=== PATIENT | male | born 1940 | race Caucasian/White ===

== ENCOUNTER → 2016-09-20 | Outpatient (CLI) | payer MEDICARE, BC ==
[~2016-09-20] MED LIST: AMLOPIDINE; ATIVAN0.5 MG; ATIVAN0.5 MG PO; CELEBREX200 MG; CELEBREX50 MG PO; CHILDREN'S ASPI81 M1 PO; LEVSIN-SL0.125 MG SL; LISINOPRIL2.5 MG PO; LOMOTIL 0.025 M1 TAB PO; LOPERAMIDE2 M2 PO; MEDI-FIRST NON325 MG PO; METOPROLOL SUCC25 M1 PO; NORCO 325 MG-51 TA1 PO; NORCO 325 MG-51 TAB; NORVASC 5MG5 MG/TAB PO; THERALITH PO
== END ==
LOC: LAB 08:23
DX: Z85.038 Personal history of other malignant neoplasm of large intestine (principal)
CPT/HCPCS: Q9967

== ENCOUNTER 2016-10-23 13:00 | Emergency (ER) | payer MEDICARE, BC | END 2016-10-23 15:43 | disposition home or self-care (01) | LOC: ED 13:00 | DX: R07.9 Chest pain, unspecified (principal); K22.4 Dyskinesia of esophagus; I10 Essential (primary) hypertension; F41.9 Anxiety disorder, unspecified ==

== ENCOUNTER → 2017-01-02 | Day surgery (SDC) | payer MEDICARE, BC ==
[2016-10-23 16:48] VITALS: BP 196/99
== END ==
LOC: MSO 08:28 → LAB 15:23 → MSO 15:24
DX: K22.2 Esophageal obstruction (principal); K21.0 Gastro-esophageal reflux disease with esophagitis
CPT/HCPCS: 00740; A4649; J3010; J7120

== ENCOUNTER → 2017-01-02 | Outpatient (CLI) | payer MEDICARE, BC ==
[2016-10-23 16:48] VITALS: BP 196/99
== END ==
LOC: RAD 16:47
DX: M54.12 Radiculopathy, cervical region (principal); M48.02 Spinal stenosis, cervical region

== ENCOUNTER → 2017-01-05 | Outpatient (CLI) | payer MEDICARE, BC ==
[2016-10-23 16:48] VITALS: BP 196/99
== END ==
LOC: RAD 08:47
DX: M54.12 Radiculopathy, cervical region (principal); M50.322 Other cervical disc degeneration at C5-C6 level; M50.323 Other cervical disc degeneration at C6-C7 level

== ENCOUNTER → 2017-03-13 | Outpatient (CLI) | payer MEDICARE, BC ==
[2016-10-23 16:48] VITALS: BP 196/99
[~2017-03-13] MED LIST changes: +CELEBREX 200MG200 MG PO; -CELEBREX50 MG PO; +CYANOCOBAL1000 MCG/1 IM; +LISINOPRIL5 MG PO; +PRILOSEC 20MG20 MG PO; -THERALITH PO; +TRAMADOL 50 MG TAB PO; +VITAMIN B COMPL1 TA1 PO
== END ==
LOC: LAB 09:39
DX: R53.83 Other fatigue (principal); W57.XXXA Bitten or stung by nonvenomous insect and other nonvenomous arthropods, initial encounter

== ENCOUNTER → 2017-04-04 | Outpatient (CLI) | payer MEDICARE, BC ==
[2016-10-23 16:48] VITALS: BP 196/99
== END ==
LOC: LAB 12:16
DX: K90.89 Other intestinal malabsorption (principal); I10 Essential (primary) hypertension; E53.8 Deficiency of other specified B group vitamins; G62.89 Other specified polyneuropathies; I73.9 Peripheral vascular disease, unspecified; N52.9 Male erectile dysfunction, unspecified

== ENCOUNTER → 2017-04-28 | Outpatient (CLI) | payer MEDICARE, BC ==
[2016-10-23 16:48] VITALS: BP 196/99
== END ==
LOC: LAB 13:21
DX: E61.1 Iron deficiency (principal)

== ENCOUNTER → 2017-05-24 | Outpatient (CLI) | payer MEDICARE, BC ==
[2016-10-23 16:48] VITALS: BP 196/99
== END ==
LOC: RAD 09:46
DX: M25.562 Pain in left knee (principal); M25.561 Pain in right knee; Z96.652 Presence of left artificial knee joint

== ENCOUNTER 2017-05-29 07:29 | Emergency (ER) | payer MEDICARE, BC ==
[~2017-05-29 07:29] MED LIST changes: -LISINOPRIL5 MG PO; -PRILOSEC 20MG20 MG PO; -TRAMADOL 50 MG TAB PO; -VITAMIN B COMPL1 TA1 PO
[2017-05-29] MEDS ORDERED: PRILOSEC 20MG20 MG PO (09:36)
[2017-05-29] MEDS ORDERED: TRAMADOL 50 MG TAB PO (09:37)
[2017-05-29] MEDS ORDERED: VITAMIN B COMPL1 TA1 PO (09:37)
[2017-05-29] MEDS ORDERED: LISINOPRIL5 MG PO (10:49)
[2017-05-29 11:20] VITALS: BP 154/95
== END 2017-05-29 11:32 | disposition home or self-care (01) ==
LOC: ED 07:29
DX: R42 Dizziness and giddiness (principal); R19.7 Diarrhea, unspecified; R53.1 Weakness; Z86.73 Personal history of transient ischemic attack (TIA), and cerebral infarction without residual deficits; Z85.09 Personal history of malignant neoplasm of other digestive organs
CPT/HCPCS: J7030

== ENCOUNTER → 2017-06-12 | Outpatient (CLI) | payer MEDICARE, BC ==
[2017-05-29 11:20] VITALS: BP 154/95
[~2017-06-12] MED LIST changes: +LISINOPRIL5 MG PO; +PRILOSEC 20MG20 MG PO; +TRAMADOL 50 MG TAB PO; +VITAMIN B COMPL1 TA1 PO
== END ==
LOC: RAD 14:21
DX: M54.5 Low back pain (principal); M51.26 Other intervertebral disc displacement, lumbar region; M46.87 Other specified inflammatory spondylopathies, lumbosacral region; M53.86 Other specified dorsopathies, lumbar region; M48.06 Spinal stenosis, lumbar region; M25.78 Osteophyte, vertebrae; Z98.890 Other specified postprocedural states
CPT/HCPCS: A9585

== ENCOUNTER → 2017-06-22 | Outpatient (CLI) | payer MEDICARE, BC ==
[2017-05-29 11:20] VITALS: BP 154/95
== END ==
LOC: LAB 14:15
DX: K90.89 Other intestinal malabsorption (principal); E53.8 Deficiency of other specified B group vitamins; G62.89 Other specified polyneuropathies; I73.9 Peripheral vascular disease, unspecified

== ENCOUNTER → 2017-08-23 | Outpatient (CLI) | payer MEDICARE, BC ==
[2017-07-09 11:27] VITALS: BP 150/104
[~2017-08-23] MED LIST changes: +ASPIR LOW81 MG PO; +FERROUS SULFAT325 M4 PO
== END ==
LOC: LAB 11:22
DX: Z01.818 Encounter for other preprocedural examination (principal); Z86.14 Personal history of Methicillin resistant Staphylococcus aureus infection

== ENCOUNTER 2017-08-31 10:07 | Outpatient (RCR) | payer MEDICARE, BC ==
[~2017-08-31] VITALS: Ht 188 cm; Wt 83.2 kg
[2017-08-31] MEDS ORDERED: LOMOTIL1 TAB PO (10:59)
[2017-08-31] MEDS ORDERED: FLOMAX0.4 MG PO (11:00)
[2017-08-31] MEDS ORDERED: FLONASE ALLERG9.9 ML NS (11:01)
[2017-08-31 11:05] VITALS: BP 142/79
[2017-09-01 09:26] VITALS: BP 135/89
[2017-09-02 09:35] VITALS: BP 137/91
[2017-09-03 09:27] VITALS: BP 126/79
[2017-09-04 09:27] VITALS: BP 136/91
[2017-09-05 09:33] VITALS: BP 118/57
[2017-09-06 09:28] VITALS: BP 126/85
== END 2017-09-06 10:00 | disposition home or self-care (01) ==
LOC: AMSURD 10:07 → EDSTATUS 10:09 → AMSURD 09-06 10:00
DX: J01.01 Acute recurrent maxillary sinusitis (principal)
CPT/HCPCS: J0696

== ENCOUNTER 2017-09-26 13:00 | Emergency (ER) | payer MEDICARE, BC ==
[~2017-09-26] VITALS: Ht 182.9 cm; Wt 85.9 kg
[~2017-09-26 13:00] MED LIST changes: +FLOMAX0.4 MG PO; +FLONASE ALLERG9.9 ML NS; +LOMOTIL1 TAB PO
[2017-09-26] MEDS ORDERED: FLOMAX0.4 MG PO (13:18)
[2017-09-26 14:29] LABS: HEMATOCRIT 43.8 % (42.0-52.0); MEAN CELL VOLUME 96 fl (78-100); MEAN CORPUSCULAR HEMOGLOBIN 33 pg (27-31); MEAN CORPUSCULAR HGB CONC 34 g/dL (33-37); MEAN PLATELET VOLUME 10.4 fl (7.4-10.4); PLATELET COUNT 299 K/mm3 (130-400); RED BLOOD COUNT 4.58 M/mm3 (4.20-5.60); RED CELL DISTRIBUTION WIDTH 14.1 % (11.5-14.5); WHITE BLOOD COUNT 8.2 K/mm3 (4.8-10.8)
[2017-09-26 14:34] LABS: ALBUMIN 4.3 g/dL (3.5-5.0); BUN/CREATININE RATIO 13.4 (6.0-26.0); CALCIUM 10.3 mg/dL (8.4-10.2); POTASSIUM 3.5 mmol/L (3.6-5.0); TOTAL BILIRUBIN 0.8 mg/dL (0.2-1.3); TOTAL PROTEIN 7.6 g/dL (6.3-8.2)
[2017-09-26 14:38] LABS: PARTIAL THROMBOPLASTIN TIME 24.5 SECONDS (21.0-32.0); PROTHROMBIN TIME 9.9 SECONDS (9.0-12.0)
[2017-09-26 14:48] LABS: NEUTROPHILS 66 % (42-75)
[2017-09-26 14:49] LABS: LYMPHOCYTE 23 % (20-51); MONOCYTE 11 % (3-10)
[2017-09-26 14:55] LABS: URINE APPEARANCE CLEAR; URINE BILIRUBIN NEGATIVE (NEGATIVE); URINE COLOR YELLOW; URINE GLUCOSE NEGATIVE (NEGATIVE); URINE KETONE NEGATIVE (NEGATIVE); URINE NITRATE NEGATIVE (NEGATIVE); URINE PROTEIN(semi-quant) TRACE mg/dL (NEGATIVE); URINE UROBILINOGEN NORMAL (NORMAL)
[2017-09-26 14:56] LABS: URINE BLOOD TRACE (NEGATIVE); URINE LEUKOCYTE ESTERASE NEGATIVE (NEGATIVE); URINE WBC 0-1 /hpf (0-3)
[2017-09-26 16:10] VITALS: BP 123/90
== END 2017-09-26 16:10 | disposition short-term general hospital (02) ==
LOC: ED 13:00
PROVIDERS: Physician Assistant
DX: I47.1 Supraventricular tachycardia (principal); I16.0 Hypertensive urgency; Z86.73 Personal history of transient ischemic attack (TIA), and cerebral infarction without residual deficits; E78.5 Hyperlipidemia, unspecified; R19.7 Diarrhea, unspecified; G62.9 Polyneuropathy, unspecified; Z79.82 Long term (current) use of aspirin
CPT/HCPCS: A4340; J3010; J3490

== ENCOUNTER → 2017-09-28 | Outpatient (CLI) | payer MEDICARE, BC ==
[~2017-09-28] VITALS: Ht 182.9 cm; Wt 83.2 kg
[~2017-09-28] MED LIST changes: +TERAZOSIN HCL2 M3; +TERAZOSIN HYDRO10 MG
[2017-09-28 10:21] LABS: ALBUMIN 4.1 g/dL (3.5-5.0); CALCIUM 10.3 mg/dL (8.4-10.2); POTASSIUM 3.8 mmol/L (3.6-5.0); TOTAL BILIRUBIN 0.8 mg/dL (0.2-1.3); TOTAL PROTEIN 7.4 g/dL (6.3-8.2)
[2017-09-28 10:24] LABS: PROTHROMBIN TIME 10.3 SECONDS (9.0-12.0)
[2017-09-28 10:33] VITALS: BP 135/86
[2017-09-28 12:19] LABS: URINE APPEARANCE CLEAR; URINE BILIRUBIN NEGATIVE (NEGATIVE); URINE BLOOD NEGATIVE (NEGATIVE); URINE COLOR YELLOW; URINE GLUCOSE NEGATIVE (NEGATIVE); URINE KETONE NEGATIVE (NEGATIVE); URINE LEUKOCYTE ESTERASE 1+ (NEGATIVE); URINE NITRATE NEGATIVE (NEGATIVE); URINE PROTEIN(semi-quant) 1+ mg/dL (NEGATIVE); URINE UROBILINOGEN NORMAL (NORMAL)
[2017-09-28 12:20] LABS: URINE MUCUS PRESENT (NOT PRESENT); URINE WBC 31-50 /hpf (0-3)
[2017-09-28 12:52] LABS: HEMATOCRIT 43.2 % (42.0-52.0); HEMOGLOBIN 14.1 g/dL (13.5-18.0); MEAN CELL VOLUME 99 fl (78-100); MEAN CORPUSCULAR HEMOGLOBIN 32 pg (27-31); MEAN CORPUSCULAR HGB CONC 33 g/dL (33-37); MEAN PLATELET VOLUME 10.5 fl (7.4-10.4); PLATELET COUNT 305 K/mm3 (130-400); RED BLOOD COUNT 4.36 M/mm3 (4.20-5.60); RED CELL DISTRIBUTION WIDTH 14.7 % (11.5-14.5); WHITE BLOOD COUNT 7.9 K/mm3 (4.8-10.8)
[2017-09-28 12:53] LABS: LYMPHOCYTE 24 % (20-51); MONOCYTE 7 % (3-10); NEUTROPHILS 69 % (42-75)
== END ==
LOC: AMSURD 09:47
PROVIDERS: Internal Medicine
DX: Z01.818 Encounter for other preprocedural examination (principal); M17.0 Bilateral primary osteoarthritis of knee; I10 Essential (primary) hypertension; N39.0 Urinary tract infection, site not specified

== ENCOUNTER 2017-09-29 08:43 | Outpatient (RCR) | payer MEDICARE, BC ==
[~2017-09-29] VITALS: Ht 182.9 cm; Wt 83.2 kg
[~2017-09-29 08:43] MED LIST changes: -TERAZOSIN HCL2 M3; -TERAZOSIN HYDRO10 MG
[2017-09-29] MEDS ORDERED: TERAZOSIN HCL2 M3 (08:59)
[2017-09-29 09:31] VITALS: BP 130/82
[2017-09-30 09:30] VITALS: BP 125/82
[2017-09-30] MEDS ORDERED: TERAZOSIN HYDRO10 MG (09:48)
[2017-09-30 09:50] VITALS: BP 136/86
[2017-10-01 09:05] VITALS: BP 132/85
[2017-10-01 09:23] VITALS: BP 126/89
[2017-10-02 09:46] VITALS: BP 148/78
[2017-10-03 09:20] VITALS: BP 136/79
[2017-10-04 09:30] VITALS: BP 137/83
[2017-10-04 09:31] VITALS: BP 137/83
[2017-10-05 09:15] VITALS: BP 132/84
== END 2017-10-05 10:00 | disposition home or self-care (01) ==
LOC: AMSURD 08:43
DX: N39.0 Urinary tract infection, site not specified (principal)
CPT/HCPCS: J0696

== ENCOUNTER → 2017-10-05 | Outpatient (CLI) | payer MEDICARE, BC ==
[~2017-10-05] MED LIST changes: +TERAZOSIN HCL2 M3; +TERAZOSIN HYDRO10 MG
[2017-10-05 09:15] VITALS: BP 132/84
[2017-10-05 17:59] LABS: URINE APPEARANCE CLEAR; URINE COLOR YELLOW
[2017-10-05 18:00] LABS: URINE BILIRUBIN NEGATIVE (NEGATIVE); URINE BLOOD 50 ery/uL (NEGATIVE); URINE GLUCOSE NEGATIVE (NEGATIVE); URINE KETONE NEGATIVE (NEGATIVE); URINE LEUKOCYTE ESTERASE NEGATIVE (NEGATIVE); URINE MUCUS PRESENT (NOT PRESENT); URINE NITRATE NEGATIVE (NEGATIVE); URINE PROTEIN(semi-quant) NEGATIVE (NEGATIVE); URINE UROBILINOGEN NORMAL (NORMAL)
== END ==
LOC: LAB 09:21
PROVIDERS: Internal Medicine
DX: N39.0 Urinary tract infection, site not specified (principal)

== ENCOUNTER → 2017-12-12 | Outpatient (CLI) | payer MEDICARE, BC ==
[2017-12-12 09:58] LABS: HEMATOCRIT 42.2 % (42.0-52.0); HEMOGLOBIN 14.2 g/dL (13.5-18.0); MEAN CELL VOLUME 96 fl (78-100); MEAN CORPUSCULAR HEMOGLOBIN 32 pg (27-31); MEAN CORPUSCULAR HGB CONC 34 g/dL (33-37); MEAN PLATELET VOLUME 9.3 fl (7.4-10.4); PLATELET COUNT 334 K/mm3 (130-400); RED BLOOD COUNT 4.41 M/mm3 (4.20-5.60); RED CELL DISTRIBUTION WIDTH 14.2 % (11.5-14.5); WHITE BLOOD COUNT 7.1 K/mm3 (4.8-10.8)
[2017-12-12 10:09] LABS: ALBUMIN 4.2 g/dL (3.5-5.0); BUN/CREATININE RATIO 13.4 (6.0-26.0); CALCIUM 10.1 mg/dL (8.4-10.2); POTASSIUM 3.9 mmol/L (3.6-5.0); TOTAL BILIRUBIN 0.6 mg/dL (0.2-1.3); TOTAL PROTEIN 7.8 g/dL (6.3-8.2)
[2017-12-12 10:18] LABS: NEUTROPHILS 59 % (42-75)
[2017-12-12 10:19] LABS: LYMPHOCYTE 22 % (20-51); MONOCYTE 16 % (3-10)
== END ==
LOC: LAB 09:42
PROVIDERS: Internal Medicine
DX: K90.89 Other intestinal malabsorption (principal); E61.1 Iron deficiency; M17.0 Bilateral primary osteoarthritis of knee; E53.8 Deficiency of other specified B group vitamins; G62.89 Other specified polyneuropathies; I73.9 Peripheral vascular disease, unspecified

== ENCOUNTER 2017-12-20 09:00 | Outpatient (RCR) | payer MEDICARE, BC | END 2018-01-11 | disposition home or self-care (01) | LOC: PT | DX: Z47.1 Aftercare following joint replacement surgery (principal); Z96.651 Presence of right artificial knee joint | CPT/HCPCS: G8978-GP; G8979-GP ==

== ENCOUNTER → 2018-01-08 | Day surgery (SDC) | payer MEDICARE, BC | LOC: MSO 08:15 | DX: R13.10 Dysphagia, unspecified (principal); K22.2 Esophageal obstruction; K44.9 Diaphragmatic hernia without obstruction or gangrene; K21.9 Gastro-esophageal reflux disease without esophagitis; I10 Essential (primary) hypertension; Z86.73 Personal history of transient ischemic attack (TIA), and cerebral infarction without residual deficits; G62.89 Other specified polyneuropathies | CPT/HCPCS: J2704; J7120 ==

== ENCOUNTER → 2018-02-21 | Outpatient (CLI) | payer MEDICARE, BC | LOC: RAD 08:03 | DX: R22.41 Localized swelling, mass and lump, right lower limb (principal); Z96.651 Presence of right artificial knee joint ==

== ENCOUNTER → 2018-03-30 | Outpatient (CLI) | payer MEDICARE, BC ==
[~2018-03-30] VITALS: Ht 182.9 cm; Wt 83.2 kg
[~2018-03-30] MED LIST changes: +MASON NATURAL1000 IU PO; +TIAZAC120 MG PO; +VITAMIN C500 M7 PO; +ZANTAC 7575 M1 PO
[2018-03-30 12:05] VITALS: BP 146/87
--- NOTE | 2018-03-30 13:27 | NUR ---
Pt up to bathroom x 2 while here - steady gait. Takes few bites of lunch and refuses rest.
[2018-03-30 14:15] VITALS: BP 135/78
--- NOTE | 2018-03-30 14:20 | NUR ---
Pt leaves hospital Ambulatory w/ steady gait. to transport pt home. Pt verbalizes he will be inside rest of day.
== END ==
LOC: ED 11:36 → EDSTATUS 11:42 → AMSURD 11:44
DX: E86.0 Dehydration (principal)
CPT/HCPCS: J7030

== ENCOUNTER 2018-04-27 08:23 | Emergency (ER) | payer MEDICARE, BC ==
[~2018-04-27] VITALS: Ht 190.5 cm; Wt 82.8 kg
[2018-04-27] MEDS ORDERED: DULOXETINE30 MG PO (08:32)
[2018-04-27 09:05] LABS: HEMATOCRIT 43.7 % (42.0-52.0); HEMOGLOBIN 14.9 g/dL (13.5-18.0); MEAN CELL VOLUME 97 fl (78-100); MEAN CORPUSCULAR HEMOGLOBIN 33 pg (27-31); MEAN CORPUSCULAR HGB CONC 34 g/dL (33-37); MEAN PLATELET VOLUME 9.3 fl (7.4-10.4); PLATELET COUNT 302 K/mm3 (130-400); RED BLOOD COUNT 4.52 M/mm3 (4.20-5.60); RED CELL DISTRIBUTION WIDTH 13.6 % (11.5-14.5); WHITE BLOOD COUNT 6.1 K/mm3 (4.8-10.8)
[2018-04-27 09:20] LABS: ALBUMIN 4.1 g/dL (3.5-5.0); BUN/CREATININE RATIO 16.9 (6.0-26.0); CALCIUM 9.7 mg/dL (8.4-10.2); POTASSIUM 4.2 mmol/L (3.6-5.0); TOTAL PROTEIN 7.2 g/dL (6.3-8.2)
[2018-04-27 09:21] LABS: LYMPHOCYTE 16 % (20-51); MONOCYTE 16 % (3-10); NEUTROPHILS 67 % (42-75)
[2018-04-27 10:39] LABS: URINE APPEARANCE CLEAR; URINE BILIRUBIN NEGATIVE (NEGATIVE); URINE BLOOD TRACE (NEGATIVE); URINE COLOR YELLOW; URINE GLUCOSE NEGATIVE (NEGATIVE); URINE KETONE NEGATIVE (NEGATIVE); URINE LEUKOCYTE ESTERASE NEGATIVE (NEGATIVE); URINE MUCUS PRESENT (NOT PRESENT); URINE NITRATE NEGATIVE (NEGATIVE); URINE PROTEIN(semi-quant) TRACE mg/dL (NEGATIVE); URINE UROBILINOGEN NORMAL (NORMAL)
[2018-04-27 12:25] VITALS: BP 127/73
== END 2018-04-27 12:06 | disposition home or self-care (01) ==
LOC: ED 08:23
PROVIDERS: Nurse Practitioner
DX: R19.7 Diarrhea, unspecified (principal); R10.84 Generalized abdominal pain; R11.0 Nausea; I95.1 Orthostatic hypotension; Z79.899 Other long term (current) drug therapy; Z79.82 Long term (current) use of aspirin
CPT/HCPCS: J2405; J3010; J7030

== ENCOUNTER → 2018-07-06 | Outpatient (CLI) | payer MEDICARE, BC ==
[~2018-07-06] MED LIST changes: +DULOXETINE30 MG PO
[2018-07-06 11:33] LABS: BASO # 0.1 (0.02-0.10); EOS # 0.1 (0.04-0.40); EOS % 1.6 % (0.0-4.0); HEMATOCRIT 42.9 % (42.0-52.0); HEMOGLOBIN 14.4 g/dL (13.5-18.0); LYMPH# 1.5 (1.50-4.00); MEAN CELL VOLUME 96 fl (78-100); MEAN CORPUSCULAR HEMOGLOBIN 32 pg (27-31); MEAN CORPUSCULAR HGB CONC 34 g/dL (33-37); MEAN PLATELET VOLUME 9.6 fl (7.4-10.4); MONO # 0.8 (0.20-0.80); PLATELET COUNT 293 K/mm3 (130-400); RED BLOOD COUNT 4.45 M/mm3 (4.20-5.60); RED CELL DISTRIBUTION WIDTH 13.6 % (11.5-14.5); WHITE BLOOD COUNT 7.5 K/mm3 (4.8-10.8)
[2018-07-06 12:20] LABS: ALBUMIN 4.2 g/dL (3.5-5.0); CALCIUM 10.5 mg/dL (8.4-10.2); POTASSIUM 4.3 mmol/L (3.6-5.0); TOTAL BILIRUBIN 0.8 mg/dL (0.2-1.3)
== END ==
LOC: LAB 10:54
PROVIDERS: Internal Medicine
DX: K90.9 Intestinal malabsorption, unspecified (principal); E61.1 Iron deficiency; E55.9 Vitamin D deficiency, unspecified; G62.9 Polyneuropathy, unspecified; I73.9 Peripheral vascular disease, unspecified; I10 Essential (primary) hypertension; M19.90 Unspecified osteoarthritis, unspecified site

== ENCOUNTER → 2018-08-23 | Outpatient (CLI) | payer MEDICARE, BC | LOC: RAD 13:29 | DX: M25.511 Pain in right shoulder (principal) ==

== ENCOUNTER → 2018-09-03 | Outpatient (CLI) | payer MEDICARE, BC | LOC: RAD 12:45 | DX: M19.011 Primary osteoarthritis, right shoulder (principal); M75.91 Shoulder lesion, unspecified, right shoulder; M25.411 Effusion, right shoulder ==

== ENCOUNTER → 2018-12-14 | Outpatient (CLI) | payer MEDICARE, BC | LOC: RAD 09:50 | DX: C78.6 Secondary malignant neoplasm of retroperitoneum and peritoneum (principal); Z90.49 Acquired absence of other specified parts of digestive tract; Z90.81 Acquired absence of spleen | CPT/HCPCS: Q9967 ==

== ENCOUNTER → 2018-12-24 | Outpatient (CLI) | payer OTHER ==
[2018-12-25 16:53] LABS: HEPATITIS B SURFACE ANTIGEN Negative (Negative)
[2018-12-25 19:50] LABS: HEPATITIS C VIRUS ANTIBODY Negative (Negative)
== END ==
LOC: LAB 13:39
PROVIDERS: Internal Medicine
DX: Z02.83 Encounter for blood-alcohol and blood-drug test (principal)

== ENCOUNTER → 2018-12-24 | Day surgery (SDC) | payer MEDICARE, BC | LOC: MSO 08:07 | DX: K22.2 Esophageal obstruction (principal); K44.9 Diaphragmatic hernia without obstruction or gangrene; K21.0 Gastro-esophageal reflux disease with esophagitis; I10 Essential (primary) hypertension; M19.90 Unspecified osteoarthritis, unspecified site; K52.9 Noninfective gastroenteritis and colitis, unspecified; Z90.49 Acquired absence of other specified parts of digestive tract; Z79.82 Long term (current) use of aspirin; Z96.653 Presence of artificial knee joint, bilateral; Z88.8 Allergy status to other drugs, medicaments and biological substances; Z86.73 Personal history of transient ischemic attack (TIA), and cerebral infarction without residual deficits; Z85.9 Personal history of malignant neoplasm, unspecified | CPT/HCPCS: 00731; C1769; J2704; J7120 ==

== ENCOUNTER → 2018-12-25 | Outpatient (CLI) | payer MEDICARE, BC ==
[2018-12-25 10:53] LABS: EOS # 0.1 (0.04-0.40); EOS % 0.4 % (0.0-4.0); HEMATOCRIT 45.9 % (42.0-52.0); HEMOGLOBIN 15.4 g/dL (13.5-18.0); LYMPH# 1.8 (1.50-4.00); MEAN CELL VOLUME 96 fl (78-100); MEAN CORPUSCULAR HEMOGLOBIN 32 pg (27-31); MEAN CORPUSCULAR HGB CONC 34 g/dL (33-37); MEAN PLATELET VOLUME 9.1 fl (7.4-10.4); MONO # 1.4 (0.20-0.80); NEU # 8.6 (1.40-6.50); PLATELET COUNT 337 K/mm3 (130-400); RED BLOOD COUNT 4.76 M/mm3 (4.20-5.60); RED CELL DISTRIBUTION WIDTH 13.5 % (11.5-14.5); WHITE BLOOD COUNT 11.9 K/mm3 (4.8-10.8)
[2018-12-25 11:19] LABS: ALBUMIN 4.3 g/dL (3.5-5.0); CALCIUM 10.5 mg/dL (8.4-10.2); POTASSIUM 3.9 mmol/L (3.6-5.0); TOTAL BILIRUBIN 0.7 mg/dL (0.2-1.3); TOTAL PROTEIN 7.6 g/dL (6.3-8.2)
== END ==
LOC: LAB 10:24
PROVIDERS: Internal Medicine
DX: K90.9 Intestinal malabsorption, unspecified (principal); E61.1 Iron deficiency; E53.8 Deficiency of other specified B group vitamins; M19.90 Unspecified osteoarthritis, unspecified site; I10 Essential (primary) hypertension; G62.9 Polyneuropathy, unspecified; I73.9 Peripheral vascular disease, unspecified

== ENCOUNTER → 2019-03-20 | Outpatient (CLI) | payer MEDICARE, BC ==
[~2019-03-20] VITALS: Ht 190.5 cm; Wt 81.8 kg
[2019-03-20 14:31] VITALS: BP 105/61
[2019-03-20 14:45] VITALS: BP 105/64
[2019-03-20 16:43] VITALS: BP 126/70
== END ==
LOC: AMSURD 14:04
DX: C80.1 Malignant (primary) neoplasm, unspecified (principal); K52.9 Noninfective gastroenteritis and colitis, unspecified; E86.0 Dehydration
CPT/HCPCS: J7030

== ENCOUNTER → 2019-04-03 | Outpatient (CLI) | payer MEDICARE, BC ==
[2019-03-20 16:43] VITALS: BP 126/70
== END ==
LOC: RAD 08:07
DX: M25.561 Pain in right knee (principal); M25.562 Pain in left knee; Z96.653 Presence of artificial knee joint, bilateral

== ENCOUNTER → 2019-10-07 | Outpatient (CLI) | payer MEDICARE, BC ==
[2019-03-20 16:43] VITALS: BP 126/70
[2019-10-07 14:18] LABS: HEMATOCRIT 40.9 % (42.0-52.0); HEMOGLOBIN 13.7 g/dL (13.5-18.0); MEAN CELL VOLUME 97 fl (78-100); MEAN CORPUSCULAR HEMOGLOBIN 33 pg (27-31); MEAN CORPUSCULAR HGB CONC 34 g/dL (33-37); MEAN PLATELET VOLUME 9.1 fl (7.4-10.4); PLATELET COUNT 322 K/mm3 (130-400); RED BLOOD COUNT 4.21 M/mm3 (4.20-5.60); RED CELL DISTRIBUTION WIDTH 13.1 % (11.5-14.5); WHITE BLOOD COUNT 6.7 K/mm3 (4.8-10.8)
[2019-10-07 14:52] LABS: LYMPHOCYTE 25 % (20-51); MONOCYTE 14 % (3-10); NEUTROPHILS 59 % (42-75)
[2019-10-07 14:53] LABS: ALBUMIN 4.2 g/dL (3.4-4.8)
[2019-10-07 14:55] LABS: TOTAL PROTEIN 7.3 g/dL (6.2-8.1)
[2019-10-07 14:57] LABS: TOTAL BILIRUBIN 0.4 mg/dL (0.2-1.2)
[2019-10-07 15:02] LABS: MAGNESIUM 1.97 mg/dL (1.60-2.60)
== END ==
LOC: LAB 14:02
PROVIDERS: Internal Medicine
DX: Z12.5 Encounter for screening for malignant neoplasm of prostate (principal); K90.9 Intestinal malabsorption, unspecified; I10 Essential (primary) hypertension; E61.1 Iron deficiency; I73.9 Peripheral vascular disease, unspecified; G62.89 Other specified polyneuropathies; E53.8 Deficiency of other specified B group vitamins; M17.0 Bilateral primary osteoarthritis of knee

== ENCOUNTER 2019-11-16 08:49 | Emergency (ER) | payer MEDICARE, BC ==
[~2019-11-16] VITALS: Ht 188 cm; Wt 81.8 kg
[2019-11-16 09:31] LABS: BASO # 0.1 (0.02-0.10); EOS # 0.1 (0.04-0.40); EOS % 1.8 % (0.0-4.0); HEMATOCRIT 43.5 % (42.0-52.0); HEMOGLOBIN 14.7 g/dL (13.5-18.0); LYMPH# 1.7 (1.50-4.00); MEAN CELL VOLUME 97 fl (78-100); MEAN CORPUSCULAR HEMOGLOBIN 33 pg (27-31); MEAN CORPUSCULAR HGB CONC 34 g/dL (33-37); MEAN PLATELET VOLUME 9.1 fl (7.4-10.4); MONO # 0.8 (0.20-0.80); PLATELET COUNT 312 K/mm3 (130-400); RED BLOOD COUNT 4.49 M/mm3 (4.20-5.60); RED CELL DISTRIBUTION WIDTH 13.1 % (11.5-14.5); WHITE BLOOD COUNT 6.7 K/mm3 (4.8-10.8)
[2019-11-16] MEDS ORDERED: ACETAMINOPHEN-H1 TA2 PO (09:33)
[2019-11-16 09:50] LABS: ALBUMIN 4.1 g/dL (3.4-4.8)
[2019-11-16 09:51] LABS: POTASSIUM 3.6 mmol/L (3.5-5.1); SODIUM 140 mmol/L (136-145)
[2019-11-16 09:52] LABS: CALCIUM 10.3 mg/dL (8.3-10.5)
[2019-11-16 09:53] LABS: GLUCOSE 114 mg/dL (75-110)
[2019-11-16 09:54] LABS: CARBON DIOXIDE 24 mmol/L (23-31); TOTAL PROTEIN 7.1 g/dL (6.2-8.1)
[2019-11-16 09:55] LABS: TOTAL BILIRUBIN 0.6 mg/dL (0.2-1.2)
[2019-11-16 09:58] LABS: AST-SGOT 24 U/L (5-34)
[2019-11-16 10:00] LABS: ALT/SGPT 21 U/L (0-55)
[2019-11-16 10:07] LABS: TROPONIN-I < 0.03 ng/mL (<0.030)
[2019-11-16 13:55] VITALS: BP 123/60
== END 2019-11-16 13:55 | disposition home or self-care (01) ==
LOC: ED 08:49
PROVIDERS: Family Medicine
DX: R00.2 Palpitations (principal); I48.91 Unspecified atrial fibrillation; E86.9 Volume depletion, unspecified; G62.9 Polyneuropathy, unspecified; K52.9 Noninfective gastroenteritis and colitis, unspecified; Z79.82 Long term (current) use of aspirin; Z85.038 Personal history of other malignant neoplasm of large intestine
CPT/HCPCS: J7030

== ENCOUNTER → 2020-02-17 | Outpatient (CLI) | payer MEDICARE, BC ==
[~2020-02-17] MED LIST changes: +ACETAMINOPHEN-H1 TA2 PO
[2020-02-17 17:23] LABS: ALBUMIN 4.2 g/dL (3.4-4.8); POTASSIUM 3.9 mmol/L (3.5-5.1)
[2020-02-17 17:25] LABS: CALCIUM 9.8 mg/dL (8.3-10.5)
[2020-02-17 17:26] LABS: TOTAL PROTEIN 7.4 g/dL (6.2-8.1)
[2020-02-17 17:28] LABS: BASO # 0.1 (0.02-0.10); EOS # 0.1 (0.04-0.40); EOS % 1.5 % (0.0-4.0); HEMATOCRIT 40.8 % (42.0-52.0); HEMOGLOBIN 13.5 g/dL (13.5-18.0); MEAN CELL VOLUME 97 fl (78-100); MEAN CORPUSCULAR HEMOGLOBIN 32 pg (27-31); MEAN CORPUSCULAR HGB CONC 33 g/dL (33-37); MEAN PLATELET VOLUME 9.4 fl (7.4-10.4); MONO # 0.9 (0.20-0.80); NEU # 4.3 (1.40-6.50); PLATELET COUNT 303 K/mm3 (130-400); RED BLOOD COUNT 4.23 M/mm3 (4.20-5.60); RED CELL DISTRIBUTION WIDTH 13.7 % (11.5-14.5); TOTAL BILIRUBIN 0.4 mg/dL (0.2-1.2); WHITE BLOOD COUNT 7.4 K/mm3 (4.8-10.8)
[2020-02-17 17:32] LABS: MAGNESIUM 2.15 mg/dL (1.60-2.60)
[2020-02-17 18:26] LABS: PH-URINE 5.5 (5.0 - 8.0); URINE APPEARANCE CLEAR; URINE BILIRUBIN NEGATIVE (NEGATIVE); URINE BLOOD TRACE (NEGATIVE); URINE COLOR YELLOW; URINE GLUCOSE NEGATIVE (NEGATIVE); URINE KETONE NEGATIVE (NEGATIVE); URINE LEUKOCYTE ESTERASE TRACE (NEGATIVE); URINE NITRATE NEGATIVE (NEGATIVE); URINE PROTEIN(semi-quant) TRACE mg/dL (NEGATIVE); URINE UROBILINOGEN NORMAL (NORMAL); URINE WBC 0-1 /hpf (0-3)
== END ==
LOC: AMSURD 16:15
PROVIDERS: Internal Medicine
DX: Z01.818 Encounter for other preprocedural examination (principal); M19.90 Unspecified osteoarthritis, unspecified site; H26.9 Unspecified cataract; J98.4 Other disorders of lung; J94.8 Other specified pleural conditions

== ENCOUNTER → 2020-02-24 | Outpatient (CLI) | payer MEDICARE, BC ==
[2020-02-24 13:43] LABS: URINE APPEARANCE CLEAR; URINE BILIRUBIN NEGATIVE (NEGATIVE); URINE BLOOD 50 ery/uL (NEGATIVE); URINE COLOR YELLOW; URINE GLUCOSE NEGATIVE (NEGATIVE); URINE KETONE NEGATIVE (NEGATIVE); URINE LEUKOCYTE ESTERASE NEGATIVE (NEGATIVE); URINE MUCUS PRESENT (NOT PRESENT); URINE NITRATE NEGATIVE (NEGATIVE); URINE PROTEIN(semi-quant) 1+ mg/dL (NEGATIVE); URINE UROBILINOGEN NORMAL (NORMAL)
== END ==
LOC: LAB 13:03
PROVIDERS: Internal Medicine
DX: Z01.818 Encounter for other preprocedural examination (principal); H26.9 Unspecified cataract

== ENCOUNTER → 2020-03-31 | Outpatient (CLI) | payer MEDICARE, BC ==
[~2020-03-31] VITALS: Ht 188 cm; Wt 79.5 kg
[~2020-03-31] MED LIST changes: -ASPIR LOW81 MG PO; +ASPIRIN E.C. 8181 MG PO; -MASON NATURAL1000 IU PO; +VITAMIN B-650 M3 PO; +VITAMIN D3100 MCG PO
[2020-03-31 09:58] VITALS: BP 139/85
[2020-03-31 10:25] VITALS: BP 139/85
[2020-03-31 11:31] VITALS: BP 123/69
--- NOTE | 2020-03-31 11:31 | NUR ---
2ND LITER STARTED. bp 123/69, HR 61, RR 16 - BREATH SOUNDS CLEAR, O2 SAT 95%. PT REPORTS FEELING "BETTER".
[2020-03-31 12:51] VITALS: BP 147/77
== END ==
LOC: AMSURD 09:18
DX: I95.1 Orthostatic hypotension (principal)
CPT/HCPCS: J7030

== ENCOUNTER 2020-06-19 01:36 | Emergency (ER) | payer MEDICARE, BC ==
[2020-06-19] MEDS ORDERED: FLOMAX0.4 MG PO (01:53)
[2020-06-19 02:23] LABS: HEMATOCRIT 41.2 % (42.0-52.0); HEMOGLOBIN 13.6 g/dL (13.5-18.0); MEAN CELL VOLUME 95 fl (78-100); MEAN CORPUSCULAR HEMOGLOBIN 31 pg (27-31); MEAN CORPUSCULAR HGB CONC 33 g/dL (33-37); MEAN PLATELET VOLUME 9.5 fl (7.4-10.4); PLATELET COUNT 325 K/mm3 (130-400); RED BLOOD COUNT 4.36 M/mm3 (4.20-5.60); RED CELL DISTRIBUTION WIDTH 13.9 % (11.5-14.5); WHITE BLOOD COUNT 12.2 K/mm3 (4.8-10.8)
[2020-06-19 02:30] LABS: URINE APPEARANCE CLEAR; URINE BILIRUBIN NEGATIVE (NEGATIVE); URINE COLOR YELLOW; URINE GLUCOSE NEGATIVE (NEGATIVE); URINE KETONE NEGATIVE (NEGATIVE); URINE PROTEIN(semi-quant) 1+ mg/dL (NEGATIVE)
[2020-06-19 02:31] LABS: URINE BLOOD TRACE (NEGATIVE); URINE LEUKOCYTE ESTERASE TRACE (NEGATIVE); URINE MUCUS PRESENT (NOT PRESENT); URINE NITRATE NEGATIVE (NEGATIVE); URINE UROBILINOGEN NORMAL (NORMAL)
[2020-06-19 02:33] LABS: ALBUMIN 4.2 g/dL (3.4-4.8)
[2020-06-19 02:34] LABS: POTASSIUM 3.7 mmol/L (3.5-5.1)
[2020-06-19 02:35] LABS: CALCIUM 10.1 mg/dL (8.3-10.5); LYMPHOCYTE 7 % (20-51); MONOCYTE 9 % (3-10); NEUTROPHILS 83 % (42-75)
[2020-06-19 02:38] LABS: TOTAL BILIRUBIN 0.7 mg/dL (0.2-1.2)
[2020-06-19 06:07] VITALS: BP 158/93
== END 2020-06-19 06:43 | disposition short-term general hospital (02) ==
LOC: ED 01:36
PROVIDERS: Nurse Practitioner Family
DX: K56.609 Unspecified intestinal obstruction, unspecified as to partial versus complete obstruction (principal); I10 Essential (primary) hypertension; Z90.49 Acquired absence of other specified parts of digestive tract; Z96.651 Presence of right artificial knee joint; Z98.890 Other specified postprocedural states; Z79.82 Long term (current) use of aspirin
CPT/HCPCS: B4082; J1885; J2270; J2405; J7030; Q9967

== ENCOUNTER → 2020-07-06 | Day surgery (SDC) | payer MEDICARE, BC ==
[2020-06-19 06:07] VITALS: BP 158/93
== END ==
LOC: MSO 07:52
DX: K22.2 Esophageal obstruction (principal); K44.9 Diaphragmatic hernia without obstruction or gangrene; K31.89 Other diseases of stomach and duodenum; I10 Essential (primary) hypertension; E53.8 Deficiency of other specified B group vitamins; G89.29 Other chronic pain; K52.9 Noninfective gastroenteritis and colitis, unspecified; Z85.09 Personal history of malignant neoplasm of other digestive organs; Z79.899 Other long term (current) drug therapy; Z92.21 Personal history of antineoplastic chemotherapy; Z86.73 Personal history of transient ischemic attack (TIA), and cerebral infarction without residual deficits; Z96.652 Presence of left artificial knee joint; Z88.8 Allergy status to other drugs, medicaments and biological substances
CPT/HCPCS: 00731; C1769; J2704; J7120

== ENCOUNTER → 2020-07-22 | Outpatient (CLI) | payer MEDICARE, BC | LOC: RAD 09:04 | DX: M24.832 Other specific joint derangements of left wrist, not elsewhere classified (principal) ==

== ENCOUNTER → 2020-10-12 | Outpatient (CLI) | payer MEDICARE, BC ==
[2020-10-12 11:38] LABS: HEMATOCRIT 37.1 % (42.0-52.0); HEMOGLOBIN 11.8 g/dL (13.5-18.0); MEAN CELL VOLUME 94 fl (78-100); MEAN CORPUSCULAR HEMOGLOBIN 30 pg (27-31); MEAN CORPUSCULAR HGB CONC 32 g/dL (33-37); MEAN PLATELET VOLUME 9.4 fl (7.4-10.4); PLATELET COUNT 374 K/mm3 (130-400); RED BLOOD COUNT 3.97 M/mm3 (4.20-5.60); RED CELL DISTRIBUTION WIDTH 13.9 % (11.5-14.5); WHITE BLOOD COUNT 6.7 K/mm3 (4.8-10.8)
[2020-10-12 11:43] LABS: ALBUMIN 4.1 g/dL (3.4-4.8); POTASSIUM 3.9 mmol/L (3.5-5.1)
[2020-10-12 11:44] LABS: CALCIUM 9.9 mg/dL (8.3-10.5)
[2020-10-12 11:46] LABS: TOTAL PROTEIN 7.7 g/dL (6.2-8.1)
[2020-10-12 11:47] LABS: TOTAL BILIRUBIN 0.4 mg/dL (0.2-1.2)
[2020-10-12 12:36] LABS: LYMPHOCYTE 21 % (20-51); MONOCYTE 11 % (3-10); NEUTROPHILS 67 % (42-75)
[2020-10-12 13:27] LABS: ERYTHROCYTE SEDIMENTATION RATE 12 mm/hr (0-20)
== END ==
LOC: LAB 11:09
PROVIDERS: Internal Medicine
DX: Z12.5 Encounter for screening for malignant neoplasm of prostate (principal); G62.9 Polyneuropathy, unspecified; K90.9 Intestinal malabsorption, unspecified; E78.2 Mixed hyperlipidemia

== ENCOUNTER → 2020-10-14 | Outpatient (CLI) | payer MEDICARE, BC | LOC: RAD 15:34 | DX: I08.1 Rheumatic disorders of both mitral and tricuspid valves (principal) ==

== ENCOUNTER → 2020-10-23 | Outpatient (CLI) | payer MEDICARE, BC | LOC: CARDREHAB 07:58 | DX: R06.00 Dyspnea, unspecified (principal) | CPT/HCPCS: A9500 ==

== ENCOUNTER 2020-11-06 09:55 | Emergency (ER) | payer MEDICARE, BC ==
[2020-11-06] MEDS ORDERED: PRILOSEC 20MG20 MG PO (10:08)
[2020-11-06 10:41] LABS: HEMATOCRIT 36.3 % (42.0-52.0); HEMOGLOBIN 11.7 g/dL (13.5-18.0); MEAN CELL VOLUME 89 fl (78-100); MEAN CORPUSCULAR HEMOGLOBIN 29 pg (27-31); MEAN CORPUSCULAR HGB CONC 32 g/dL (33-37); MEAN PLATELET VOLUME 9.6 fl (7.4-10.4); PLATELET COUNT 388 K/mm3 (130-400); RED BLOOD COUNT 4.07 M/mm3 (4.20-5.60); RED CELL DISTRIBUTION WIDTH 14.1 % (11.5-14.5); WHITE BLOOD COUNT 5.9 K/mm3 (4.8-10.8)
[2020-11-06 11:02] LABS: LYMPHOCYTE 24 % (20-51); MONOCYTE 14 % (3-10); NEUTROPHILS 60 % (42-75); TEAR DROP CELLS 1+
[2020-11-06 11:04] LABS: POTASSIUM 4.1 mmol/L (3.5-5.1)
[2020-11-06 11:05] LABS: CALCIUM 9.7 mg/dL (8.3-10.5)
[2020-11-06 11:06] LABS: TOTAL PROTEIN 7.5 g/dL (6.2-8.1)
[2020-11-06 11:08] LABS: TOTAL BILIRUBIN 0.5 mg/dL (0.2-1.2)
[2020-11-06 12:03] LABS: URINE APPEARANCE CLEAR; URINE BILIRUBIN NEGATIVE (NEGATIVE); URINE BLOOD 50 ery/uL (NEGATIVE); URINE COLOR YELLOW; URINE GLUCOSE NEGATIVE (NEGATIVE); URINE KETONE NEGATIVE (NEGATIVE); URINE LEUKOCYTE ESTERASE NEGATIVE (NEGATIVE); URINE NITRATE NEGATIVE (NEGATIVE); URINE PROTEIN(semi-quant) TRACE mg/dL (NEGATIVE); URINE UROBILINOGEN NORMAL (NORMAL); URINE WBC 0-1 /hpf (0-3)
[2020-11-06 13:27] VITALS: BP 135/88
[2021-07-31] MEDS ORDERED: NORTRIPTYLINE H10 M2 PO (08:46)
== END 2020-11-06 13:28 | disposition home or self-care (01) ==
LOC: ED 09:55
PROVIDERS: Nurse Practitioner Primary Care
DX: I95.1 Orthostatic hypotension (principal); E86.0 Dehydration; Z86.73 Personal history of transient ischemic attack (TIA), and cerebral infarction without residual deficits; Z85.89 Personal history of malignant neoplasm of other organs and systems; Z88.8 Allergy status to other drugs, medicaments and biological substances; Z79.82 Long term (current) use of aspirin
CPT/HCPCS: J7030

== ENCOUNTER → 2020-11-16 | Outpatient (CLI) | payer MEDICARE, BC ==
[2020-11-06 13:27] VITALS: BP 135/88
[~2020-11-16] MED LIST changes: +DILTIAZEM 24HR120 M2 PO; +LORAZEPAM0.5 M1 PO; +NORTRIPTYLINE H10 M2 PO
[2020-11-16 12:54] LABS: POTASSIUM 4.2 mmol/L (3.5-5.1)
[2020-11-16 12:55] LABS: CALCIUM 9.7 mg/dL (8.3-10.5)
[2020-11-16 13:08] LABS: EOS % 2.4 % (0.0-4.0); HEMATOCRIT 34.9 % (42.0-52.0); HEMOGLOBIN 11.2 g/dL (13.5-18.0); LYMPH# 1.6 (1.50-4.00); MEAN CELL VOLUME 91 fl (78-100); MEAN CORPUSCULAR HEMOGLOBIN 29 pg (27-31); MEAN CORPUSCULAR HGB CONC 32 g/dL (33-37); MEAN PLATELET VOLUME 8.8 fl (7.4-10.4); NEU # 3.6 (1.40-6.50); PLATELET COUNT 372 K/mm3 (130-400); RED BLOOD COUNT 3.85 M/mm3 (4.20-5.60); RED CELL DISTRIBUTION WIDTH 13.8 % (11.5-14.5); WHITE BLOOD COUNT 6.2 K/mm3 (4.8-10.8)
[2020-11-16 13:09] LABS: BASO # 0.1 (0.02-0.10); EOS # 0.2 (0.04-0.40); MONO # 0.7 (0.20-0.80)
== END ==
LOC: LAB 12:19
PROVIDERS: Internal Medicine
DX: E61.1 Iron deficiency (principal); G62.9 Polyneuropathy, unspecified

== ENCOUNTER 2020-11-17 09:12 | Emergency (ER) | payer MEDICARE, BC ==
[~2020-11-17 09:12] MED LIST changes: -DILTIAZEM 24HR120 M2 PO; -LORAZEPAM0.5 M1 PO; -NORTRIPTYLINE H10 M2 PO
[2020-11-17 10:02] LABS: ALBUMIN 3.9 g/dL (3.4-4.8)
[2020-11-17 10:03] LABS: POTASSIUM 3.8 mmol/L (3.5-5.1); SODIUM 139 mmol/L (136-145)
[2020-11-17 10:04] LABS: CALCIUM 9.7 mg/dL (8.3-10.5)
[2020-11-17 10:05] LABS: GLUCOSE 103 mg/dL (75-110); TOTAL PROTEIN 7.4 g/dL (6.2-8.1)
[2020-11-17 10:06] LABS: CARBON DIOXIDE 25 mmol/L (23-31)
[2020-11-17 10:07] LABS: TOTAL BILIRUBIN 0.4 mg/dL (0.2-1.2)
[2020-11-17 10:10] LABS: AST-SGOT 19 U/L (5-34)
[2020-11-17 10:11] LABS: ALT/SGPT 16 U/L (0-55)
[2020-11-17 10:18] LABS: TROPONIN-I < 0.03 ng/mL (<0.030)
[2020-11-17 10:37] LABS: D-DIMER 0.6 mg/L FEU (0.15-0.50)
[2020-11-17 11:07] LABS: URINE APPEARANCE CLEAR; URINE BILIRUBIN NEGATIVE (NEGATIVE); URINE BLOOD TRACE (NEGATIVE); URINE COLOR YELLOW; URINE GLUCOSE NEGATIVE (NEGATIVE); URINE KETONE NEGATIVE (NEGATIVE); URINE LEUKOCYTE ESTERASE NEGATIVE (NEGATIVE); URINE NITRATE NEGATIVE (NEGATIVE); URINE PROTEIN(semi-quant) TRACE mg/dL (NEGATIVE); URINE UROBILINOGEN NORMAL (NORMAL); URINE WBC 0-1 /hpf (0-3)
[2020-11-17 11:16] LABS: HEMOGLOBIN 11.3 g/dL (13.5-18.0); RED BLOOD COUNT 3.96 M/mm3 (4.20-5.60); WHITE BLOOD COUNT 7.1 K/mm3 (4.8-10.8)
[2020-11-17 11:17] LABS: BASO # 0.1 (0.02-0.10); EOS # 0.1 (0.04-0.40); HEMATOCRIT 35.1 % (42.0-52.0); LYMPH# 1.5 (1.50-4.00); MEAN CELL VOLUME 90 fl (78-100); MEAN CORPUSCULAR HEMOGLOBIN 29 pg (27-31); MEAN CORPUSCULAR HGB CONC 32 g/dL (33-37); MEAN PLATELET VOLUME 9.1 fl (7.4-10.4); MONO # 0.8 (0.20-0.80); NEU # 4.6 (1.40-6.50); PLATELET COUNT 400 K/mm3 (130-400); RED CELL DISTRIBUTION WIDTH 13.9 % (11.5-14.5)
[2020-11-17 12:39] VITALS: BP 167/87
[2021-07-31] MEDS ORDERED: NORTRIPTYLINE H10 M2 PO (08:46)
== END 2020-11-17 12:40 | disposition home or self-care (01) ==
LOC: ED 09:12
PROVIDERS: Nurse Practitioner Family
DX: R06.02 Shortness of breath (principal); D50.9 Iron deficiency anemia, unspecified; I95.1 Orthostatic hypotension; R53.1 Weakness; I10 Essential (primary) hypertension; G89.29 Other chronic pain; Z86.73 Personal history of transient ischemic attack (TIA), and cerebral infarction without residual deficits; Z79.82 Long term (current) use of aspirin
CPT/HCPCS: J7030; Q9967

== ENCOUNTER → 2020-11-18 | Outpatient (CLI) | payer MEDICARE, BC ==
[2020-11-17 12:39] VITALS: BP 167/87
[~2020-11-18] MED LIST changes: +DILTIAZEM 24HR120 M2 PO; +LORAZEPAM0.5 M1 PO; +NORTRIPTYLINE H10 M2 PO
== END ==
LOC: LAB 11:06
DX: Z01.812 Encounter for preprocedural laboratory examination (principal); Z20.822 Contact with and (suspected) exposure to COVID-19

== ENCOUNTER → 2020-11-23 | Day surgery (SDC) | payer MEDICARE, BC ==
[2020-11-17 12:39] VITALS: BP 167/87
== END | disposition home or self-care (01) ==
LOC: MSO 09:14
DX: K22.2 Esophageal obstruction (principal); K21.9 Gastro-esophageal reflux disease without esophagitis; D50.9 Iron deficiency anemia, unspecified; R19.7 Diarrhea, unspecified; G89.29 Other chronic pain; I10 Essential (primary) hypertension; I47.1 Supraventricular tachycardia; K90.9 Intestinal malabsorption, unspecified; G62.0 Drug-induced polyneuropathy; C80.1 Malignant (primary) neoplasm, unspecified; D49.0 Neoplasm of unspecified behavior of digestive system; Z79.899 Other long term (current) drug therapy; Z79.1 Long term (current) use of non-steroidal anti-inflammatories (NSAID); Z92.21 Personal history of antineoplastic chemotherapy; Z86.73 Personal history of transient ischemic attack (TIA), and cerebral infarction without residual deficits
CPT/HCPCS: 00813; A4649; C1769; J2704; J7120

== ENCOUNTER 2020-12-17 14:09 | Emergency (ER) | payer MEDICARE, BC ==
[~2020-12-17 14:09] MED LIST changes: -DILTIAZEM 24HR120 M2 PO; -LORAZEPAM0.5 M1 PO; -NORTRIPTYLINE H10 M2 PO
[2020-12-17 14:44] LABS: EOS # 0.1 (0.04-0.40); EOS % 0.6 % (0.0-4.0); HEMATOCRIT 40.3 % (42.0-52.0); HEMOGLOBIN 13.2 g/dL (13.5-18.0); LYMPH# 1.7 (1.50-4.00); MEAN CELL VOLUME 91 fl (78-100); MEAN CORPUSCULAR HEMOGLOBIN 30 pg (27-31); MEAN CORPUSCULAR HGB CONC 33 g/dL (33-37); MEAN PLATELET VOLUME 8.9 fl (7.4-10.4); MONO # 1.1 (0.20-0.80); NEU # 8.5 (1.40-6.50); PLATELET COUNT 359 K/mm3 (130-400); RED BLOOD COUNT 4.44 M/mm3 (4.20-5.60); RED CELL DISTRIBUTION WIDTH 18.2 % (11.5-14.5); WHITE BLOOD COUNT 11.4 K/mm3 (4.8-10.8)
[2020-12-17 14:55] LABS: ALBUMIN 4.1 g/dL (3.4-4.8); POTASSIUM 3.8 mmol/L (3.5-5.1)
[2020-12-17 14:56] LABS: CALCIUM 10.2 mg/dL (8.3-10.5)
[2020-12-17 14:58] LABS: TOTAL PROTEIN 7.8 g/dL (6.2-8.1)
[2020-12-17 14:59] LABS: TOTAL BILIRUBIN 0.3 mg/dL (0.2-1.2)
[2020-12-17 16:08] LABS: D-DIMER 0.48 mg/L FEU (0.15-0.50)
[2020-12-17 16:44] LABS: URINE APPEARANCE CLEAR; URINE COLOR YELLOW; URINE GLUCOSE NEGATIVE (NEGATIVE); URINE KETONE TR (NEGATIVE); URINE PROTEIN(semi-quant) 2+ mg/dL (NEGATIVE)
[2020-12-17 16:45] LABS: URINE BILIRUBIN NEGATIVE (NEGATIVE); URINE BLOOD 50 ery/uL (NEGATIVE); URINE LEUKOCYTE ESTERASE NEGATIVE (NEGATIVE); URINE MUCUS PRESENT (NOT PRESENT); URINE NITRATE NEGATIVE (NEGATIVE); URINE UROBILINOGEN NORMAL (NORMAL)
[2020-12-17 17:33] VITALS: BP 114/73
[2021-07-31] MEDS ORDERED: NORTRIPTYLINE H10 M2 PO (08:46)
== END 2020-12-17 17:34 | disposition home or self-care (01) ==
LOC: ED 14:09
PROVIDERS: Nurse Practitioner Family; Nurse Practitioner Primary Care
DX: D50.9 Iron deficiency anemia, unspecified (principal); F41.9 Anxiety disorder, unspecified; I10 Essential (primary) hypertension; Z86.73 Personal history of transient ischemic attack (TIA), and cerebral infarction without residual deficits; Z79.82 Long term (current) use of aspirin

== ENCOUNTER 2020-12-31 10:51 | Outpatient (RCR) | payer MEDICARE, BC ==
[2021-02-22] MEDS ORDERED: DILTIAZEM 24HR120 M2 PO (15:26)
[2021-02-22] MEDS ORDERED: LORAZEPAM0.5 M1 PO (15:27)
[2021-07-31] MEDS ORDERED: NORTRIPTYLINE H10 M2 PO (08:46)
== END 2021-03-31 ==
LOC: PT
DX: K90.9 Intestinal malabsorption, unspecified (principal); G62.9 Polyneuropathy, unspecified; R06.00 Dyspnea, unspecified; E61.1 Iron deficiency; I10 Essential (primary) hypertension; M62.81 Muscle weakness (generalized)

== ENCOUNTER → 2021-01-20 | Outpatient (CLI) | payer MEDICARE, BC ==
[~2021-01-20] MED LIST changes: +DILTIAZEM 24HR120 M2 PO; +LORAZEPAM0.5 M1 PO; +NORTRIPTYLINE H10 M2 PO
[2021-01-20 11:13] LABS: BASO # 0.04 (0.02-0.10); EOS # 0.07 (0.04-0.40); EOS % 1.1 % (0.0-4.0); HEMATOCRIT 42.8 % (42.0-52.0); HEMOGLOBIN 14.2 g/dL (13.5-18.0); LYMPH# 1.49 (1.50-4.00); MEAN CELL VOLUME 93 fl (78-100); MEAN CORPUSCULAR HEMOGLOBIN 31 pg (27-31); MEAN CORPUSCULAR HGB CONC 33 g/dL (33-37); MEAN PLATELET VOLUME 9.7 fl (7.4-10.4); MONO # 0.59 (0.20-0.80); NEU # 4.04 (1.40-6.50); PLATELET COUNT 352 K/mm3 (130-400); RED BLOOD COUNT 4.61 M/mm3 (4.20-5.60); RED CELL DISTRIBUTION WIDTH 17.8 % (11.5-14.5); WHITE BLOOD COUNT 6.2 K/mm3 (4.8-10.8)
== END ==
LOC: LAB 10:42
PROVIDERS: Internal Medicine
DX: K90.9 Intestinal malabsorption, unspecified (principal); I10 Essential (primary) hypertension

== ENCOUNTER → 2021-02-22 | Outpatient (CLI) | payer MEDICARE, BC ==
[2021-02-22 15:17] VITALS: BP 141/83
[2021-02-22 15:32] VITALS: BP 141/83
[2021-02-22 16:33] VITALS: BP 151/87
== END ==
LOC: AMSURD 14:43
DX: K52.9 Noninfective gastroenteritis and colitis, unspecified (principal)
CPT/HCPCS: J7030

== ENCOUNTER 2021-04-05 11:00 | Outpatient (RCR) | payer MEDICARE, BC ==
[~2021-04-05 11:00] MED LIST changes: -NORTRIPTYLINE H10 M2 PO
[2021-07-31] MEDS ORDERED: NORTRIPTYLINE H10 M2 PO (08:46)
== END 2021-07-04 | disposition home or self-care (01) ==
LOC: PT
DX: D50.9 Iron deficiency anemia, unspecified (principal); G47.00 Insomnia, unspecified; R53.1 Weakness

== ENCOUNTER → 2021-04-14 | Outpatient (CLI) | payer MEDICARE, BC ==
[~2021-04-14] MED LIST changes: +NORTRIPTYLINE H10 M2 PO
[2021-04-14 14:42] LABS: BASO # 0.06 (0.02-0.10); EOS # 0.13 (0.04-0.40); EOS % 1.8 % (0.0-4.0); HEMATOCRIT 40.6 % (42.0-52.0); HEMOGLOBIN 13.6 g/dL (13.5-18.0); LYMPH# 1.87 (1.50-4.00); MEAN CELL VOLUME 99 fl (78-100); MEAN CORPUSCULAR HEMOGLOBIN 33 pg (27-31); MEAN CORPUSCULAR HGB CONC 34 g/dL (33-37); MEAN PLATELET VOLUME 9.1 fl (7.4-10.4); NEU # 4.37 (1.40-6.50); PLATELET COUNT 345 K/mm3 (130-400); RED BLOOD COUNT 4.11 M/mm3 (4.20-5.60); RED CELL DISTRIBUTION WIDTH 13.5 % (11.5-14.5); WHITE BLOOD COUNT 7.1 K/mm3 (4.8-10.8)
[2021-04-14 14:45] LABS: POTASSIUM 4.2 mmol/L (3.5-5.1)
[2021-04-14 14:46] LABS: CALCIUM 10.7 mg/dL (8.3-10.5)
[2021-04-14 14:48] LABS: TOTAL PROTEIN 7.5 g/dL (6.2-8.1)
[2021-04-14 14:49] LABS: TOTAL BILIRUBIN 0.6 mg/dL (0.2-1.2)
== END ==
LOC: LAB 14:02
PROVIDERS: Internal Medicine
DX: K90.9 Intestinal malabsorption, unspecified (principal); I10 Essential (primary) hypertension

== ENCOUNTER → 2021-07-20 | Outpatient (CLI) | payer MEDICARE, BC ==
[2021-07-20 11:22] LABS: BASO # 0.07 K/mm3 (0.02-0.10); EOS # 0.14 K/mm3 (0.04-0.40); EOS % 1.9 % (0.0-4.0); HEMATOCRIT 42.6 % (42.0-52.0); LYMPH# 1.72 K/mm3 (1.50-4.00); MEAN CELL VOLUME 98 fl (78-100); MEAN CORPUSCULAR HEMOGLOBIN 32 pg (27-31); MEAN CORPUSCULAR HGB CONC 33 g/dL (33-37); MEAN PLATELET VOLUME 8.9 fl (7.4-10.4); MONO # 0.78 K/mm3 (0.20-0.80); NEU # 4.72 K/mm3 (1.40-6.50); PLATELET COUNT 330 K/mm3 (130-400); RED BLOOD COUNT 4.34 M/mm3 (4.20-5.60); RED CELL DISTRIBUTION WIDTH 12.9 % (11.5-14.5); WHITE BLOOD COUNT 7.4 K/mm3 (4.8-10.8)
[2021-07-20 11:26] LABS: ALBUMIN 3.9 g/dL (3.4-4.8); POTASSIUM 3.7 mmol/L (3.5-5.1)
[2021-07-20 11:27] LABS: CALCIUM 10.6 mg/dL (8.3-10.5)
[2021-07-20 11:28] LABS: TOTAL PROTEIN 7.6 g/dL (6.2-8.1)
[2021-07-20 11:30] LABS: TOTAL BILIRUBIN 0.5 mg/dL (0.2-1.2)
== END ==
LOC: LAB 11:00
PROVIDERS: Internal Medicine
DX: I10 Essential (primary) hypertension (principal); K90.9 Intestinal malabsorption, unspecified

== ENCOUNTER → 2021-07-22 | Outpatient (CLI) | payer MEDICARE, BC ==
[~2021-07-22] VITALS: Ht 188 cm; Wt 74.5 kg
[2021-07-22 12:32] VITALS: BP 141/95
[2021-07-22 14:57] VITALS: BP 130/80
== END ==
LOC: AMSURD 12:30
DX: Z79.899 Other long term (current) drug therapy (principal)
CPT/HCPCS: J7030

== ENCOUNTER 2021-08-09 08:52 | Outpatient (RCR) | payer MEDICARE, BC ==
[2021-07-31 08:52] VITALS: BP 134/75
[2021-08-01 09:02] VITALS: BP 155/91
[2021-08-02 09:20] VITALS: BP 142/81
[2021-08-03 09:00] VITALS: BP 147/95
--- NOTE | 2021-08-03 09:07 | NUR ---
DISCUSS VITAL SIGNS WITH PATIENT. PER REPORT, BP & P HAVE BEEN ELEVATED. WANTING TO DC NORTRIPTYLINE AND WAITING TO HEAR FROM HIS DOCTOR.
[2021-08-04 09:05] VITALS: BP 144/90
[2021-08-05 09:46] VITALS: BP 156/90
[2021-08-06 09:30] VITALS: BP 148/78
[2021-08-07 09:09] VITALS: BP 138/85
[2021-08-08 09:05] VITALS: BP 140/88
[~2021-08-09] VITALS: Ht 188 cm; Wt 74.5 kg
[2021-08-09 09:06] VITALS: BP 129/81
== END 2021-10-18 | disposition home or self-care (01) ==
LOC: AMSURD
DX: K04.7 Periapical abscess without sinus (principal)
CPT/HCPCS: J0696

== ENCOUNTER → 2021-10-29 | Outpatient (CLI) | payer MEDICARE, BC ==
[2021-10-29 11:21] LABS: BASO # 0.05 K/mm3 (0.02-0.10); EOS # 0.08 K/mm3 (0.04-0.40); EOS % 1.1 % (0.0-4.0); HEMATOCRIT 40.8 % (42.0-52.0); HEMOGLOBIN 13.6 g/dL (13.5-18.0); LYMPH# 1.85 K/mm3 (1.50-4.00); MEAN CELL VOLUME 97 fl (78-100); MEAN CORPUSCULAR HEMOGLOBIN 32 pg (27-31); MEAN CORPUSCULAR HGB CONC 33 g/dL (33-37); MEAN PLATELET VOLUME 9.4 fl (7.4-10.4); MONO # 0.74 K/mm3 (0.20-0.80); NEU # 4.37 K/mm3 (1.40-6.50); PLATELET COUNT 300 K/mm3 (130-400); RED BLOOD COUNT 4.21 M/mm3 (4.20-5.60); RED CELL DISTRIBUTION WIDTH 13.2 % (11.5-14.5); WHITE BLOOD COUNT 7.1 K/mm3 (4.8-10.8)
[2021-10-29 12:02] LABS: POTASSIUM 4.1 mmol/L (3.5-5.1)
[2021-10-29 12:03] LABS: ALBUMIN 4.2 g/dL (3.4-4.8)
[2021-10-29 12:04] LABS: CALCIUM 10.5 mg/dL (8.3-10.5)
[2021-10-29 12:05] LABS: TOTAL PROTEIN 7.8 g/dL (6.2-8.1)
[2021-10-29 12:07] LABS: TOTAL BILIRUBIN 0.5 mg/dL (0.2-1.2)
== END ==
LOC: LAB 10:47
PROVIDERS: Internal Medicine
DX: Z12.5 Encounter for screening for malignant neoplasm of prostate (principal); I10 Essential (primary) hypertension; K90.9 Intestinal malabsorption, unspecified; E78.2 Mixed hyperlipidemia

== ENCOUNTER → 2022-01-12 | Outpatient (CLI) | payer MEDICARE, BC ==
[~2022-01-12] VITALS: Ht 188 cm; Wt 76.5 kg
[2022-01-12 12:58] VITALS: BP 146/83
[2022-01-12 13:01] VITALS: BP 124/72; BP 148/87
[2022-01-12 13:13] VITALS: BP 148/87
[2022-01-12 15:15] VITALS: BP 158/96
[2022-01-12 15:16] VITALS: BP 159/92
[2022-01-12 15:18] VITALS: BP 141/91
== END ==
LOC: AMSURD 12:36
DX: E86.0 Dehydration (principal)
CPT/HCPCS: J7030

== ENCOUNTER → 2022-03-29 | Outpatient (CLI) | payer MEDICARE, BC ==
[2022-03-29 11:25] LABS: BASO # 0.05 K/mm3 (0.02-0.10); EOS # 0.12 K/mm3 (0.04-0.40); EOS % 1.7 % (0.0-4.0); HEMATOCRIT 41.9 % (42.0-52.0); HEMOGLOBIN 14.2 g/dL (13.5-18.0); LYMPH# 1.44 K/mm3 (1.50-4.00); MEAN CELL VOLUME 97 fl (78-100); MEAN CORPUSCULAR HEMOGLOBIN 33 pg (27-31); MEAN CORPUSCULAR HGB CONC 34 g/dL (33-37); MEAN PLATELET VOLUME 9.1 fl (7.4-10.4); MONO # 0.68 K/mm3 (0.20-0.80); NEU # 4.79 K/mm3 (1.40-6.50); PLATELET COUNT 306 K/mm3 (130-400); RED BLOOD COUNT 4.34 M/mm3 (4.20-5.60); RED CELL DISTRIBUTION WIDTH 12.9 % (11.5-14.5); WHITE BLOOD COUNT 7.1 K/mm3 (4.8-10.8)
[2022-03-29 11:32] LABS: ALBUMIN 4.2 g/dL (3.4-4.8); POTASSIUM 3.8 mmol/L (3.5-5.1)
[2022-03-29 11:33] LABS: CALCIUM 10.8 mg/dL (8.3-10.5)
[2022-03-29 11:34] LABS: TOTAL PROTEIN 7.7 g/dL (6.2-8.1)
[2022-03-29 11:36] LABS: TOTAL BILIRUBIN 0.7 mg/dL (0.2-1.2)
[2022-03-29 11:41] LABS: MAGNESIUM 1.82 mg/dL (1.60-2.60)
[2022-03-29 12:36] LABS: ERYTHROCYTE SEDIMENTATION RATE 19 mm/hr (0-20)
== END ==
LOC: LAB 11:00
PROVIDERS: Internal Medicine
DX: E78.2 Mixed hyperlipidemia (principal); I10 Essential (primary) hypertension; K90.9 Intestinal malabsorption, unspecified; G89.29 Other chronic pain; E53.8 Deficiency of other specified B group vitamins; I47.1 Supraventricular tachycardia; C80.1 Malignant (primary) neoplasm, unspecified; E53.1 Pyridoxine deficiency; C78.6 Secondary malignant neoplasm of retroperitoneum and peritoneum; M19.90 Unspecified osteoarthritis, unspecified site; M54.16 Radiculopathy, lumbar region; Z28.39 Other underimmunization status

== ENCOUNTER → 2022-04-19 | Outpatient (CLI) | payer MEDICARE, BC ==
[2022-04-19 10:35] VITALS: BP 135/77
[2022-04-19 10:53] VITALS: BP 135/77
[2022-04-19 12:40] VITALS: BP 142/82
== END ==
LOC: AMSURD 10:16
DX: Z51.81 Encounter for therapeutic drug level monitoring (principal)
CPT/HCPCS: J7030

== ENCOUNTER → 2022-05-04 | Outpatient (CLI) | payer MEDICARE, BC ==
[~2022-05-04] VITALS: Ht 188 cm; Wt 76.5 kg
[2022-05-04 11:11] VITALS: BP 130/84
[2022-05-04 11:24] LABS: BASO # 0.07 K/mm3 (0.02-0.10); EOS # 0.09 K/mm3 (0.04-0.40); EOS % 0.9 % (0.0-4.0); HEMATOCRIT 40.1 % (42.0-52.0); HEMOGLOBIN 13.5 g/dL (13.5-18.0); LYMPH# 1.38 K/mm3 (1.50-4.00); MEAN CELL VOLUME 96 fl (78-100); MEAN CORPUSCULAR HEMOGLOBIN 32 pg (27-31); MEAN CORPUSCULAR HGB CONC 34 g/dL (33-37); MEAN PLATELET VOLUME 8.8 fl (7.4-10.4); MONO # 0.87 K/mm3 (0.20-0.80); NEU # 7.23 K/mm3 (1.40-6.50); PLATELET COUNT 422 K/mm3 (130-400); RED CELL DISTRIBUTION WIDTH 12.4 % (11.5-14.5); WHITE BLOOD COUNT 9.7 K/mm3 (4.8-10.8)
[2022-05-04 11:32] LABS: ALBUMIN 3.9 g/dL (3.4-4.8); POTASSIUM 4.2 mmol/L (3.5-5.1)
[2022-05-04 11:33] LABS: CALCIUM 10.6 mg/dL (8.3-10.5)
[2022-05-04 11:36] LABS: TOTAL BILIRUBIN 0.4 mg/dL (0.2-1.2)
[2022-05-04 11:38] LABS: URINE APPEARANCE CLEAR; URINE BILIRUBIN NEGATIVE (NEGATIVE); URINE BLOOD 50 ery/uL (NEGATIVE); URINE COLOR YELLOW; URINE GLUCOSE NEGATIVE (NEGATIVE); URINE KETONE NEGATIVE (NEGATIVE); URINE LEUKOCYTE ESTERASE NEGATIVE (NEGATIVE); URINE NITRATE NEGATIVE (NEGATIVE); URINE PROTEIN(semi-quant) TRACE (NEGATIVE); URINE UROBILINOGEN NORMAL (NORMAL); URINE WBC 0-1 /hpf (0-3)
[2022-05-04 12:26] VITALS: BP 137/75
[2022-05-04 12:28] VITALS: BP 138/84
[2022-05-04 12:30] VITALS: BP 125/78
== END ==
LOC: AMSURD 10:59
PROVIDERS: Nurse Practitioner Family
DX: R53.81 Other malaise (principal); R53.83 Other fatigue
CPT/HCPCS: J7030

== ENCOUNTER → 2022-10-04 | Outpatient (CLI) | payer MEDICARE, BC ==
[~2022-10-04] MED LIST changes: +BETAMETHASONE D1 CR2 TP; +CARDIZEM 30MG T30 MG PO; +CARDIZEM CD120 M1 PO; +LOMOTIL TAB 01 UDTAB PO; +VITAMIN D350 MC1 PO
== END ==
LOC: RAD 13:38
DX: R06.00 Dyspnea, unspecified (principal)

== ENCOUNTER 2022-10-06 14:41 | Emergency (ER) | payer MEDICARE, BC ==
[~2022-10-06 14:41] MED LIST changes: -CARDIZEM CD120 M1 PO
[2022-10-06] MEDS ORDERED: CARDIZEM CD120 M1 PO (14:51)
[2022-10-06 15:52] LABS: BASO # 0.04 K/mm3 (0.02-0.10); EOS # 0.17 K/mm3 (0.04-0.40); EOS % 1.5 % (0.0-4.0); HEMATOCRIT 40.5 % (42.0-52.0); HEMOGLOBIN 13.5 g/dL (13.5-18.0); MEAN CELL VOLUME 96 fl (78-100); MEAN CORPUSCULAR HEMOGLOBIN 32 pg (27-31); MEAN CORPUSCULAR HGB CONC 33 g/dL (33-37); MEAN PLATELET VOLUME 9.4 fl (7.4-10.4); MONO # 0.91 K/mm3 (0.20-0.80); NEU # 8.06 K/mm3 (1.40-6.50); PLATELET COUNT 337 K/mm3 (130-400); RED BLOOD COUNT 4.23 M/mm3 (4.20-5.60); RED CELL DISTRIBUTION WIDTH 13.4 % (11.5-14.5); WHITE BLOOD COUNT 11.1 K/mm3 (4.8-10.8)
[2022-10-06 16:01] LABS: ALBUMIN 3.7 g/dL (3.4-4.8)
[2022-10-06 16:02] LABS: CALCIUM 10.7 mg/dL (8.3-10.5)
[2022-10-06 16:03] LABS: TOTAL PROTEIN 7.7 g/dL (6.2-8.1)
[2022-10-06 16:37] LABS: TOTAL BILIRUBIN 0.4 mg/dL (0.2-1.2)
[2022-10-06 17:50] VITALS: BP 156/89
== END 2022-10-06 17:44 | disposition home or self-care (01) ==
LOC: ED 14:41
PROVIDERS: Family Medicine
DX: I95.1 Orthostatic hypotension (principal)
CPT/HCPCS: J7030

== ENCOUNTER → 2022-10-07 | Outpatient (CLI) | payer MEDICARE, BC ==
[~2022-10-07] MED LIST changes: +CARDIZEM CD120 M1 PO
== END ==
LOC: CARDREHAB 09:03
DX: R06.00 Dyspnea, unspecified (principal)
CPT/HCPCS: A9500; J2785

== ENCOUNTER 2022-12-24 09:55 | Emergency (ER) | payer MEDICARE, BC ==
[~2022-12-24 09:55] MED LIST changes: +FLOVENT HFA12 G1 IH; +KETOROLAC10 MG PO
[2022-12-24] MEDS ORDERED: PEPCID40 M1 PO (10:14)
[2022-12-24 10:48] LABS: BASO # 0.05 K/mm3 (0.02-0.10); EOS # 0.13 K/mm3 (0.04-0.40); EOS % 1.6 % (0.0-4.0); HEMATOCRIT 37.4 % (42.0-52.0); HEMOGLOBIN 12.7 g/dL (13.5-18.0); LYMPH# 1.21 K/mm3 (1.50-4.00); MEAN CELL VOLUME 95 fl (78-100); MEAN CORPUSCULAR HEMOGLOBIN 32 pg (27-31); MEAN CORPUSCULAR HGB CONC 34 g/dL (33-37); MEAN PLATELET VOLUME 8.8 fl (7.4-10.4); MONO # 1.05 K/mm3 (0.20-0.80); NEU # 5.43 K/mm3 (1.40-6.50); PLATELET COUNT 349 K/mm3 (130-400); RED BLOOD COUNT 3.93 M/mm3 (4.20-5.60); WHITE BLOOD COUNT 7.9 K/mm3 (4.8-10.8)
[2022-12-24 10:59] LABS: POTASSIUM 3.8 mmol/L (3.5-5.1)
[2022-12-24 11:01] LABS: CALCIUM 10.7 mg/dL (8.3-10.5)
[2022-12-24 12:54] VITALS: BP 146/91
== END 2022-12-24 13:04 | disposition home or self-care (01) ==
LOC: ED 09:55
PROVIDERS: Family Medicine
DX: R42 Dizziness and giddiness (principal); E86.9 Volume depletion, unspecified; F41.9 Anxiety disorder, unspecified; Z28.310 Unvaccinated for COVID-19
CPT/HCPCS: J7030

== ENCOUNTER → 2022-12-26 | Day surgery (SDC) | payer MEDICARE, BC ==
[~2022-12-26] MED LIST changes: +PEPCID40 M1 PO
== END | disposition home or self-care (01) ==
LOC: MSO 07:04
DX: R13.10 Dysphagia, unspecified (principal); K22.2 Esophageal obstruction
CPT/HCPCS: 00731; C1769; J2704; J7120

== ENCOUNTER → 2023-07-03 | Outpatient (CLI) | payer MEDICARE, BC | LOC: RAD 07:30 | DX: K22.5 Diverticulum of esophagus, acquired (principal) ==

== ENCOUNTER 2023-07-20 07:54 | Outpatient (RCR) | payer MEDICARE, BC | END 2023-08-17 | disposition home or self-care (01) | LOC: SPEECH | DX: J69.0 Pneumonitis due to inhalation of food and vomit (principal) ==

== ENCOUNTER → 2023-10-11 | Outpatient (CLI) | payer MEDICARE, BC ==
[~2023-10-11] VITALS: Ht 188 cm; Wt 70.7 kg
[2023-10-11 14:15] VITALS: BP 138/87
== END ==
LOC: AMSURD 13:55
DX: E86.0 Dehydration (principal)
CPT/HCPCS: J7030

== ENCOUNTER → 2023-12-05 | Outpatient (CLI) | payer MEDICARE, BC | LOC: RAD 10:01 | DX: R05.3 Chronic cough (principal); Z87.898 Personal history of other specified conditions ==

== ENCOUNTER → 2023-12-12 | Outpatient (CLI) | payer MEDICARE, BC ==
[2023-12-12 14:44] LABS: BASO # 0.04 K/mm3 (0.02-0.10); EOS # 0.11 K/mm3 (0.04-0.40); EOS % 1.4 % (0.0-4.0); HEMATOCRIT 39.3 % (42.0-52.0); HEMOGLOBIN 12.8 g/dL (13.5-18.0); LYMPH# 1.74 K/mm3 (1.50-4.00); MEAN CELL VOLUME 98 fl (78-100); MEAN CORPUSCULAR HEMOGLOBIN 32 pg (27-31); MEAN CORPUSCULAR HGB CONC 33 g/dL (33-37); MEAN PLATELET VOLUME 9.5 fl (7.4-10.4); MONO # 1.03 K/mm3 (0.20-0.80); NEU # 4.94 K/mm3 (1.40-6.50); PLATELET COUNT 358 K/mm3 (130-400); RED BLOOD COUNT 4.02 M/mm3 (4.20-5.60); RED CELL DISTRIBUTION WIDTH 13.3 % (11.5-14.5); WHITE BLOOD COUNT 7.9 K/mm3 (4.8-10.8)
[2023-12-12 14:57] LABS: ALBUMIN 4.1 g/dL (3.4-4.8); SODIUM 139 mmol/L (136-145)
[2023-12-12 14:58] LABS: CALCIUM 10.6 mg/dL (8.3-10.5)
[2023-12-12 14:59] LABS: GLUCOSE 97 mg/dL (75-110); TOTAL PROTEIN 7.7 g/dL (6.2-8.1)
[2023-12-12 15:00] LABS: CARBON DIOXIDE 27 mmol/L (23-31)
[2023-12-12 15:01] LABS: TOTAL BILIRUBIN 0.3 mg/dL (0.2-1.2)
[2023-12-12 15:05] LABS: AST-SGOT 17 U/L (5-34)
[2023-12-12 15:06] LABS: ALT/SGPT 12 U/L (0-55)
== END ==
LOC: LAB 14:21
PROVIDERS: Internal Medicine
DX: J15.9 Unspecified bacterial pneumonia (principal)

== ENCOUNTER 2024-02-14 09:53 | Emergency (ER) | payer MEDICARE, BC ==
[2024-02-14] MEDS ORDERED: NS 1,000 ML IV ONE (10:55)
[2024-02-14] MEDS ORDERED: cefTRIAXone 1 G in Water For Injection,Sterile 10 ML IV ONE (10:55)
== END 2024-02-14 12:45 | disposition home or self-care (01) ==
LOC: ED 09:53
DX: R53.83 Other fatigue (principal); N39.0 Urinary tract infection, site not specified
CPT/HCPCS: J0696; J7030

== ENCOUNTER → 2024-02-20 | Outpatient (CLI) | payer MEDICARE, BC ==
[2024-04-09 13:03] LABS: PH-URINE 5.5 (5.0 - 8.0); URINE APPEARANCE CLEAR (CLEAR); URINE BILIRUBIN NEGATIVE (NEGATIVE); URINE COLOR YELLOW (YELLOW); URINE GLUCOSE NEGATIVE (NEGATIVE); URINE KETONE NEGATIVE (NEGATIVE); URINE PROTEIN(semi-quant) 2+ (NEGATIVE)
[2024-04-09 13:04] LABS: URINE BLOOD TRACE (NEGATIVE); URINE LEUKOCYTE ESTERASE NEGATIVE (NEGATIVE); URINE MUCUS PRESENT (NOT PRESENT); URINE NITRATE NEGATIVE (NEGATIVE); URINE WBC 0-1 /hpf (0-3)
== END ==
LOC: LAB 13:40
PROVIDERS: Internal Medicine
DX: N39.0 Urinary tract infection, site not specified (principal)

== ENCOUNTER → 2024-03-06 | Outpatient (CLI) | payer MEDICARE, BC ==
[~2024-03-06] VITALS: Ht 188 cm; Wt 75.2 kg
[~2024-03-06] MED LIST changes: +NS 1,000 ML IV ONE; +NS 1,000 ML IV SCH
[2024-03-06 12:16] VITALS: BP 138/91
[2024-03-06 14:04] VITALS: BP 150/92
== END ==
LOC: AMSURD 11:38
DX: E86.0 Dehydration (principal)
CPT/HCPCS: J7030

== ENCOUNTER → 2024-04-25 | Outpatient (CLI) | payer MEDICARE, BC ==
[~2024-04-25] MED LIST changes: -NS 1,000 ML IV ONE; -NS 1,000 ML IV SCH
[2024-04-25 12:58] LABS: BASO # 0.05 K/mm3 (0.02-0.10); EOS # 0.08 K/mm3 (0.04-0.40); EOS % 1.1 % (0.0-4.0); HEMATOCRIT 40.3 % (42.0-52.0); HEMOGLOBIN 13.3 g/dL (13.5-18.0); LYMPH# 1.69 K/mm3 (1.50-4.00); MEAN CELL VOLUME 96 fl (78-100); MEAN CORPUSCULAR HEMOGLOBIN 32 pg (27-31); MEAN CORPUSCULAR HGB CONC 33 g/dL (33-37); MEAN PLATELET VOLUME 9.4 fl (7.4-10.4); MONO # 0.85 K/mm3 (0.20-0.80); PLATELET COUNT 297 K/mm3 (130-400); WHITE BLOOD COUNT 7.1 K/mm3 (4.8-10.8)
[2024-04-25 13:13] LABS: CALCIUM 10.7 mg/dL (8.3-10.5)
[2024-04-25 13:14] LABS: TOTAL PROTEIN 7.4 g/dL (6.2-8.1)
[2024-04-25 13:16] LABS: TOTAL BILIRUBIN 0.6 mg/dL (0.2-1.2)
[2024-04-25 13:21] LABS: MAGNESIUM 1.95 mg/dL (1.60-2.60)
== END ==
LOC: LAB 12:41
PROVIDERS: Internal Medicine
DX: Z12.5 Encounter for screening for malignant neoplasm of prostate (principal); Z12.11 Encounter for screening for malignant neoplasm of colon; J44.9 Chronic obstructive pulmonary disease, unspecified; K90.9 Intestinal malabsorption, unspecified; E78.2 Mixed hyperlipidemia; I10 Essential (primary) hypertension

== ENCOUNTER → 2024-04-29 | Outpatient (CLI) | payer MEDICARE, BC | LOC: LAB 15:13 | DX: Z12.5 Encounter for screening for malignant neoplasm of prostate (principal); Z12.11 Encounter for screening for malignant neoplasm of colon; I10 Essential (primary) hypertension; K90.9 Intestinal malabsorption, unspecified; E78.2 Mixed hyperlipidemia ==

== ENCOUNTER → 2024-06-13 | Outpatient (CLI) | payer MEDICARE, BC ==
[2024-06-13 10:06] LABS: URINE WBC 0 /hpf (0-3)
[2024-06-13 10:15] LABS: BASO # 0.03 K/mm3 (0.02-0.10); EOS # 0.11 K/mm3 (0.04-0.40); EOS % 1.5 % (0.0-4.0); HEMATOCRIT 39.5 % (42.0-52.0); HEMOGLOBIN 12.9 g/dL (13.5-18.0); LYMPH# 1.22 K/mm3 (1.50-4.00); MEAN CELL VOLUME 97 fl (78-100); MEAN CORPUSCULAR HEMOGLOBIN 32 pg (27-31); MEAN CORPUSCULAR HGB CONC 33 g/dL (33-37); MEAN PLATELET VOLUME 9.1 fl (7.4-10.4); MONO # 0.81 K/mm3 (0.20-0.80); NEU # 5.08 K/mm3 (1.40-6.50); PLATELET COUNT 314 K/mm3 (130-400); RED BLOOD COUNT 4.06 M/mm3 (4.20-5.60); RED CELL DISTRIBUTION WIDTH 14.4 % (11.5-14.5); WHITE BLOOD COUNT 7.3 K/mm3 (4.8-10.8)
[2024-06-13 10:25] LABS: CALCIUM 10.4 mg/dL (8.3-10.5)
[2024-06-13 10:26] LABS: TOTAL PROTEIN 7.4 g/dL (6.2-8.1)
[2024-06-13 10:28] LABS: PH-URINE 5.5 (5.0 - 8.0); TOTAL BILIRUBIN 0.4 mg/dL (0.2-1.2); URINE APPEARANCE CLEAR (CLEAR); URINE BILIRUBIN NEGATIVE (NEGATIVE); URINE COLOR YELLOW (YELLOW); URINE GLUCOSE NEGATIVE (NEGATIVE); URINE KETONE NEGATIVE (NEGATIVE); URINE NITRATE NEGATIVE (NEGATIVE); URINE PROTEIN(semi-quant) NEGATIVE (NEGATIVE)
[2024-06-13 10:29] LABS: URINE BLOOD TRACE (NEGATIVE); URINE LEUKOCYTE ESTERASE NEGATIVE (NEGATIVE)
== END ==
LOC: LAB 09:46
PROVIDERS: Internal Medicine
DX: N39.0 Urinary tract infection, site not specified (principal); R06.00 Dyspnea, unspecified

== ENCOUNTER → 2024-06-17 | Outpatient (CLI) | payer MEDICARE, BC ==
[2024-06-17 09:31] LABS: BASO # 0.03 K/mm3 (0.02-0.10); EOS # 0.13 K/mm3 (0.04-0.40); EOS % 1.9 % (0.0-4.0); HEMATOCRIT 40.2 % (42.0-52.0); HEMOGLOBIN 13.1 g/dL (13.5-18.0); LYMPH# 1.19 K/mm3 (1.50-4.00); MEAN CELL VOLUME 97 fl (78-100); MEAN CORPUSCULAR HEMOGLOBIN 32 pg (27-31); MEAN CORPUSCULAR HGB CONC 33 g/dL (33-37); MEAN PLATELET VOLUME 9.1 fl (7.4-10.4); MONO # 0.78 K/mm3 (0.20-0.80); PLATELET COUNT 330 K/mm3 (130-400); RED BLOOD COUNT 4.13 M/mm3 (4.20-5.60); RED CELL DISTRIBUTION WIDTH 14.4 % (11.5-14.5); WHITE BLOOD COUNT 6.8 K/mm3 (4.8-10.8)
[2024-06-17 09:39] LABS: ALBUMIN 4.2 g/dL (3.4-4.8)
[2024-06-17 09:40] LABS: CALCIUM 10.8 mg/dL (8.3-10.5)
[2024-06-17 09:41] LABS: TOTAL PROTEIN 7.6 g/dL (6.2-8.1)
[2024-06-17 09:43] LABS: TOTAL BILIRUBIN 0.5 mg/dL (0.2-1.2)
[2024-06-17 09:48] LABS: MAGNESIUM 1.97 mg/dL (1.60-2.60)
[2024-06-17 23:20] LABS: PTH,INTACT 92.5 pg/mL (6.6-88.9)
== END ==
LOC: LAB 09:11
PROVIDERS: Internal Medicine
DX: Z12.5 Encounter for screening for malignant neoplasm of prostate (principal); Z12.11 Encounter for screening for malignant neoplasm of colon; E78.2 Mixed hyperlipidemia; I10 Essential (primary) hypertension; K90.9 Intestinal malabsorption, unspecified; E83.52 Hypercalcemia

== ENCOUNTER 2024-06-21 14:10 | Emergency (ER) | payer MEDICARE, BC ==
[~2024-06-21] VITALS: Ht 188 cm; Wt 72.9 kg
[2024-06-21] MEDS ORDERED: BREO ELLIPTA 21 EACH IH (14:23)
[2024-06-21] MEDS ORDERED: ESCITALOPRAM10 MG PO (14:23)
[2024-06-21 14:30] LABS: BASO # 0.03 K/mm3 (0.02-0.10); EOS % 1.6 % (0.0-4.0); HEMATOCRIT 38.3 % (42.0-52.0); HEMOGLOBIN 12.9 g/dL (13.5-18.0); LYMPH# 1.53 K/mm3 (1.50-4.00); MEAN CELL VOLUME 96 fl (78-100); MEAN CORPUSCULAR HEMOGLOBIN 32 pg (27-31); MEAN CORPUSCULAR HGB CONC 34 g/dL (33-37); MEAN PLATELET VOLUME 9.1 fl (7.4-10.4); MONO # 0.78 K/mm3 (0.20-0.80); NEU # 3.88 K/mm3 (1.40-6.50); PLATELET COUNT 310 K/mm3 (130-400); RED BLOOD COUNT 3.99 M/mm3 (4.20-5.60); RED CELL DISTRIBUTION WIDTH 14.4 % (11.5-14.5); WHITE BLOOD COUNT 6.3 K/mm3 (4.8-10.8)
[2024-06-21 14:40] LABS: ALBUMIN 3.9 g/dL (3.4-4.8)
[2024-06-21 14:42] LABS: CALCIUM 10.1 mg/dL (8.3-10.5)
[2024-06-21 14:43] LABS: TOTAL PROTEIN 7.2 g/dL (6.2-8.1)
[2024-06-21 14:45] LABS: TOTAL BILIRUBIN 0.4 mg/dL (0.2-1.2)
[2024-06-21] MEDS ORDERED: CELECOXIB100 M1 PO (15:37)
[2024-06-21] MEDS ORDERED: FLUTICASONE P15.8 ML NS (15:44)
[2024-06-21 16:05] VITALS: BP 148/90
== END 2024-06-21 16:12 | disposition home or self-care (01) ==
LOC: ED 14:10
PROVIDERS: Family Medicine
DX: J32.3 Chronic sphenoidal sinusitis (principal); R42 Dizziness and giddiness

== ENCOUNTER → 2024-07-15 | Outpatient (CLI) | payer MEDICARE, BC ==
[~2024-07-15] MED LIST changes: +BREO ELLIPTA 21 EACH IH; +CELECOXIB100 M1 PO; +ESCITALOPRAM10 MG PO; +FLUTICASONE P15.8 ML NS
== END ==
LOC: LAB 09:32
DX: E21.3 Hyperparathyroidism, unspecified (principal)

== ENCOUNTER → 2024-08-12 | Outpatient (CLI) | payer MEDICARE, BC ==
[2024-08-12 14:40] LABS: BASO # 0.07 K/mm3 (0.02-0.10); EOS # 0.14 K/mm3 (0.04-0.40); EOS % 1.8 % (0.0-4.0); HEMATOCRIT 37.9 % (42.0-52.0); HEMOGLOBIN 12.4 g/dL (13.5-18.0); LYMPH# 1.67 K/mm3 (1.50-4.00); MEAN CELL VOLUME 99 fl (78-100); MEAN CORPUSCULAR HEMOGLOBIN 32 pg (27-31); MEAN CORPUSCULAR HGB CONC 33 g/dL (33-37); MEAN PLATELET VOLUME 8.9 fl (7.4-10.4); MONO # 0.86 K/mm3 (0.20-0.80); NEU # 4.96 K/mm3 (1.40-6.50); PLATELET COUNT 344 K/mm3 (130-400); RED BLOOD COUNT 3.84 M/mm3 (4.20-5.60); RED CELL DISTRIBUTION WIDTH 13.1 % (11.5-14.5); WHITE BLOOD COUNT 7.7 K/mm3 (4.8-10.8)
[2024-08-12 14:48] LABS: ALBUMIN 4.1 g/dL (3.4-4.8); SODIUM 140 mmol/L (136-145)
[2024-08-12 14:49] LABS: CALCIUM 10.6 mg/dL (8.3-10.5)
[2024-08-12 14:51] LABS: GLUCOSE 93 mg/dL (75-110); TOTAL PROTEIN 7.5 g/dL (6.2-8.1)
[2024-08-12 14:52] LABS: CARBON DIOXIDE 24 mmol/L (23-31)
[2024-08-12 14:53] LABS: TOTAL BILIRUBIN 0.3 mg/dL (0.2-1.2)
[2024-08-12 14:56] LABS: AST-SGOT 15 U/L (5-34)
[2024-08-12 14:57] LABS: ALT/SGPT 12 U/L (0-55); MAGNESIUM 2.09 mg/dL (1.60-2.60)
== END ==
LOC: LAB 14:20
PROVIDERS: Internal Medicine
DX: R06.00 Dyspnea, unspecified (principal)

== ENCOUNTER → 2024-08-30 | Outpatient (CLI) | payer MEDICARE, BC | LOC: LAB 10:43 | DX: Z12.5 Encounter for screening for malignant neoplasm of prostate (principal); Z12.11 Encounter for screening for malignant neoplasm of colon; I10 Essential (primary) hypertension; K90.9 Intestinal malabsorption, unspecified; E78.2 Mixed hyperlipidemia ==

== ENCOUNTER 2024-09-18 10:23 | Emergency (ER) | payer MEDICARE, BC ==
[~2024-09-18] VITALS: Ht 188 cm; Wt 72.9 kg
[2024-09-18] MEDS ORDERED: NS 1,000 ML IV ONE (11:15)
[2024-09-18 11:49] LABS: BASO # 0.05 K/mm3 (0.02-0.10); EOS # 0.12 K/mm3 (0.04-0.40); EOS % 1.8 % (0.0-4.0); HEMATOCRIT 30.7 % (42.0-52.0); HEMOGLOBIN 9.7 g/dL (13.5-18.0); LYMPH# 1.22 K/mm3 (1.50-4.00); MEAN CELL VOLUME 94 fl (78-100); MEAN CORPUSCULAR HEMOGLOBIN 30 pg (27-31); MEAN CORPUSCULAR HGB CONC 32 g/dL (33-37); MEAN PLATELET VOLUME 9.4 fl (7.4-10.4); MONO # 1.01 K/mm3 (0.20-0.80); NEU # 4.38 K/mm3 (1.40-6.50); PLATELET COUNT 551 K/mm3 (130-400); RED BLOOD COUNT 3.26 M/mm3 (4.20-5.60); RED CELL DISTRIBUTION WIDTH 13.7 % (11.5-14.5); WHITE BLOOD COUNT 6.8 K/mm3 (4.8-10.8)
[2024-09-18 11:50] LABS: ALBUMIN 4.2 g/dL (3.4-4.8)
[2024-09-18 11:51] LABS: SODIUM 139 mmol/L (136-145)
[2024-09-18 11:52] LABS: CALCIUM 10.3 mg/dL (8.3-10.5)
[2024-09-18 11:53] LABS: GLUCOSE 103 mg/dL (75-110); TOTAL PROTEIN 8.2 g/dL (6.2-8.1)
[2024-09-18 11:54] LABS: CARBON DIOXIDE 22 mmol/L (23-31)
[2024-09-18 11:55] LABS: TOTAL BILIRUBIN 0.3 mg/dL (0.2-1.2)
[2024-09-18 11:58] LABS: AST-SGOT 19 U/L (5-34)
[2024-09-18 11:59] LABS: ALT/SGPT 10 U/L (0-55)
[2024-09-18 12:06] LABS: TROPONIN-I < 0.030 ng/mL (0.00-0.033)
[2024-09-18] MEDS ORDERED: ROCEPHIN 2 G2 G/VIAL IM (13:24)
[2024-09-18] MEDS ORDERED: cefTRIAXone 1 G in Water For Injection,Sterile 10 ML IV ONE (13:30)
[2024-09-18 13:46] VITALS: BP 160/85
== END 2024-09-18 13:47 | disposition home or self-care (01) ==
LOC: ED 10:23
PROVIDERS: Family Medicine
DX: R05.9 Cough, unspecified (principal); D72.810 Lymphocytopenia
CPT/HCPCS: J0696; J7030

== ENCOUNTER → 2024-10-02 | Outpatient (CLI) | payer MEDICARE, BC ==
[~2024-10-02] MED LIST changes: +ROCEPHIN 2 G2 G/VIAL IM
== END ==
LOC: VAS 12:29
DX: I08.0 Rheumatic disorders of both mitral and aortic valves (principal)

== ENCOUNTER → 2024-10-18 | Outpatient (CLI) | payer MEDICARE, BC ==
[~2024-10-18] MED LIST changes: +FEOSOL325 MG PO
[2024-10-18 10:15] LABS: BASO # 0.06 K/mm3 (0.02-0.10); EOS # 0.15 K/mm3 (0.04-0.40); EOS % 1.8 % (0.0-4.0); HEMATOCRIT 27.9 % (42.0-52.0); HEMOGLOBIN 8.7 g/dL (13.5-18.0); MEAN CELL VOLUME 88 fl (78-100); MEAN CORPUSCULAR HEMOGLOBIN 27 pg (27-31); MEAN CORPUSCULAR HGB CONC 31 g/dL (33-37); MEAN PLATELET VOLUME 9.2 fl (7.4-10.4); MONO # 0.82 K/mm3 (0.20-0.80); NEU # 6.16 K/mm3 (1.40-6.50); PLATELET COUNT 630 K/mm3 (130-400); RED BLOOD COUNT 3.18 M/mm3 (4.20-5.60); RED CELL DISTRIBUTION WIDTH 15.1 % (11.5-14.5); WHITE BLOOD COUNT 8.5 K/mm3 (4.8-10.8)
== END ==
LOC: LAB 09:47
PROVIDERS: Internal Medicine
DX: D64.9 Anemia, unspecified (principal)

== ENCOUNTER 2024-10-19 09:18 | Emergency (ER) | payer MEDICARE, BC ==
[~2024-10-19] VITALS: Ht 188 cm; Wt 75.2 kg
[~2024-10-19 09:18] MED LIST changes: -FEOSOL325 MG PO
[2024-10-19 10:00] LABS: BASO # 0.05 K/mm3 (0.02-0.10); EOS # 0.18 K/mm3 (0.04-0.40); EOS % 2.1 % (0.0-4.0); HEMATOCRIT 27.4 % (42.0-52.0); HEMOGLOBIN 8.5 g/dL (13.5-18.0); LYMPH# 1.31 K/mm3 (1.50-4.00); MEAN CELL VOLUME 87 fl (78-100); MEAN CORPUSCULAR HEMOGLOBIN 27 pg (27-31); MEAN CORPUSCULAR HGB CONC 31 g/dL (33-37); MONO # 0.95 K/mm3 (0.20-0.80); NEU # 5.93 K/mm3 (1.40-6.50); PLATELET COUNT 579 K/mm3 (130-400); RED BLOOD COUNT 3.15 M/mm3 (4.20-5.60); RED CELL DISTRIBUTION WIDTH 15.1 % (11.5-14.5); WHITE BLOOD COUNT 8.4 K/mm3 (4.8-10.8)
[2024-10-19 10:09] LABS: ALBUMIN 3.6 g/dL (3.4-4.8)
[2024-10-19 10:10] LABS: SODIUM 138 mmol/L (136-145)
[2024-10-19 10:11] LABS: CALCIUM 11.3 mg/dL (8.3-10.5)
[2024-10-19 10:12] LABS: GLUCOSE 116 mg/dL (75-110)
[2024-10-19 10:13] LABS: CARBON DIOXIDE 21 mmol/L (23-31)
[2024-10-19 10:14] LABS: TOTAL BILIRUBIN 0.3 mg/dL (0.2-1.2)
[2024-10-19 10:17] LABS: AST-SGOT 17 U/L (5-34)
[2024-10-19 10:18] LABS: ALT/SGPT 9 U/L (0-55)
[2024-10-19 10:24] LABS: TROPONIN-I < 0.030 ng/mL (0.00-0.033)
[2024-10-19] MEDS ORDERED: FEOSOL325 MG PO (11:00)
[2024-10-19 11:18] VITALS: BP 155/84
== END 2024-10-19 11:22 | disposition home or self-care (01) ==
LOC: ED 09:18
PROVIDERS: Family Medicine
DX: J43.9 Emphysema, unspecified (principal); D64.9 Anemia, unspecified

== ENCOUNTER 2024-10-24 08:32 | Emergency (ER) | payer MEDICARE, BC ==
[~2024-10-24] VITALS: Ht 182.9 cm; Wt 75.0 kg
[~2024-10-24 08:32] MED LIST changes: +FEOSOL325 MG PO
[2024-10-24 08:35] VITALS: BP 146/87
[2024-10-24] MEDS ORDERED: NS 1,000 ML IV ONE (09:00)
[2024-10-24 09:39] LABS: BASO # 0.04 K/mm3 (0.02-0.10); EOS # 0.19 K/mm3 (0.04-0.40); EOS % 1.9 % (0.0-4.0); HEMOGLOBIN 8.7 g/dL (13.5-18.0); LYMPH# 1.78 K/mm3 (1.50-4.00); MEAN CELL VOLUME 88 fl (78-100); MEAN CORPUSCULAR HEMOGLOBIN 27 pg (27-31); MEAN CORPUSCULAR HGB CONC 31 g/dL (33-37); MEAN PLATELET VOLUME 10.1 fl (7.4-10.4); MONO # 1.18 K/mm3 (0.20-0.80); NEU # 6.76 K/mm3 (1.40-6.50); PLATELET COUNT 576 K/mm3 (130-400); RED BLOOD COUNT 3.18 M/mm3 (4.20-5.60); RED CELL DISTRIBUTION WIDTH 16.1 % (11.5-14.5)
[2024-10-24 09:43] LABS: ALBUMIN 3.7 g/dL (3.4-4.8); SODIUM 138 mmol/L (136-145)
[2024-10-24 09:44] LABS: CALCIUM 10.3 mg/dL (8.3-10.5)
[2024-10-24 09:45] LABS: GLUCOSE 111 mg/dL (75-110); TOTAL PROTEIN 7.8 g/dL (6.2-8.1)
[2024-10-24 09:46] LABS: CARBON DIOXIDE 22 mmol/L (23-31)
[2024-10-24 09:47] LABS: TOTAL BILIRUBIN 0.3 mg/dL (0.2-1.2)
[2024-10-24 09:50] LABS: AST-SGOT 17 U/L (5-34)
[2024-10-24 09:52] LABS: ALT/SGPT 10 U/L (0-55)
[2024-10-24 09:54] LABS: RSV RAPID MOLECULAR IN HOUSE NEGATIVE (NEGATIVE)
[2024-10-24 09:59] LABS: URINE APPEARANCE CLEAR (CLEAR); URINE BILIRUBIN NEGATIVE (NEGATIVE); URINE COLOR YELLOW (YELLOW); URINE GLUCOSE NEGATIVE (NEGATIVE); URINE KETONE NEGATIVE (NEGATIVE); URINE PROTEIN(semi-quant) NEGATIVE (NEGATIVE)
[2024-10-24 10:00] LABS: URINE BLOOD NEGATIVE (NEGATIVE); URINE LEUKOCYTE ESTERASE NEGATIVE (NEGATIVE); URINE MUCUS PRESENT (NOT PRESENT); URINE NITRATE NEGATIVE (NEGATIVE)
[2024-10-24 10:00] LABS: TROPONIN-I < 0.030 ng/mL (0.00-0.033)
[2024-10-24] MEDS ORDERED: Iron Sucrose 200 MG in NS 100 ML Over 15 minutes IV ONE (11:30)
== END 2024-10-24 11:41 | disposition home or self-care (01) ==
LOC: ED 08:32
PROVIDERS: Family Medicine
DX: D64.9 Anemia, unspecified (principal)
CPT/HCPCS: J7030

== ENCOUNTER → 2024-11-01 | Outpatient (CLI) | payer MEDICARE, BC ==
[2024-11-01 13:44] LABS: BASO # 0.04 K/mm3 (0.02-0.10); EOS % 2.3 % (0.0-4.0); HEMATOCRIT 33.7 % (42.0-52.0); HEMOGLOBIN 10.3 g/dL (13.5-18.0); LYMPH# 1.36 K/mm3 (1.50-4.00); MEAN CELL VOLUME 92 fl (78-100); MEAN CORPUSCULAR HEMOGLOBIN 28 pg (27-31); MEAN CORPUSCULAR HGB CONC 31 g/dL (33-37); MEAN PLATELET VOLUME 8.8 fl (7.4-10.4); MONO # 0.91 K/mm3 (0.20-0.80); NEU # 6.24 K/mm3 (1.40-6.50); PLATELET COUNT 461 K/mm3 (130-400); RED BLOOD COUNT 3.65 M/mm3 (4.20-5.60); WHITE BLOOD COUNT 8.8 K/mm3 (4.8-10.8)
== END ==
LOC: LAB 13:33
PROVIDERS: Internal Medicine
DX: E61.1 Iron deficiency (principal)

== ENCOUNTER → 2024-11-08 | Outpatient (CLI) | payer MEDICARE, BC ==
[2024-11-08 10:24] LABS: BASO # 0.03 K/mm3 (0.02-0.10); EOS # 0.16 K/mm3 (0.04-0.40); EOS % 2.3 % (0.0-4.0); HEMATOCRIT 35.4 % (42.0-52.0); HEMOGLOBIN 11.1 g/dL (13.5-18.0); LYMPH# 1.21 K/mm3 (1.50-4.00); MEAN CELL VOLUME 92 fl (78-100); MEAN CORPUSCULAR HEMOGLOBIN 29 pg (27-31); MEAN CORPUSCULAR HGB CONC 31 g/dL (33-37); MEAN PLATELET VOLUME 8.9 fl (7.4-10.4); NEU # 4.73 K/mm3 (1.40-6.50); PLATELET COUNT 431 K/mm3 (130-400); RED BLOOD COUNT 3.84 M/mm3 (4.20-5.60); RED CELL DISTRIBUTION WIDTH 23.4 % (11.5-14.5); WHITE BLOOD COUNT 6.9 K/mm3 (4.8-10.8)
== END ==
LOC: LAB 10:08
PROVIDERS: Internal Medicine
DX: E61.1 Iron deficiency (principal)

== ENCOUNTER → 2024-11-29 | Outpatient (CLI) | payer MEDICARE, BC ==
[2024-11-29 10:33] LABS: BASO # 0.02 K/mm3 (0.02-0.10); EOS # 0.14 K/mm3 (0.04-0.40); EOS % 1.8 % (0.0-4.0); HEMATOCRIT 38.3 % (42.0-52.0); HEMOGLOBIN 12.2 g/dL (13.5-18.0); LYMPH# 1.37 K/mm3 (1.50-4.00); MEAN CELL VOLUME 94 fl (78-100); MEAN CORPUSCULAR HEMOGLOBIN 30 pg (27-31); MEAN CORPUSCULAR HGB CONC 32 g/dL (33-37); MEAN PLATELET VOLUME 9.2 fl (7.4-10.4); MONO # 0.89 K/mm3 (0.20-0.80); NEU # 5.45 K/mm3 (1.40-6.50); PLATELET COUNT 352 K/mm3 (130-400); RED BLOOD COUNT 4.09 M/mm3 (4.20-5.60); WHITE BLOOD COUNT 7.9 K/mm3 (4.8-10.8)
== END ==
LOC: LAB 10:22
PROVIDERS: Internal Medicine
DX: E61.1 Iron deficiency (principal)